=== PATIENT | female | born 1990 | race Caucasian/White ===

== ENCOUNTER 2017-02-03 12:41 | Inpatient (IN) ==
--- OUTSIDE RECORDS SUMMARY | 2017-02-03 10:29 | External Medical Summary | Summary of Care ---
:1990 Author Name Salima Haas M.D. Address Unavailable Unavailable , Care Team Providers Name Role Phone Waldo Roberson, Salima Unavailable Unavailable No Assigned PCP-Pt Confirmed Unavailable Unavailable Unavailable Unavailable Unavailable Functional Status Functional Status Health Issues Name Dates Details Functional status health issues are not documented Status: Cognitive Status Health Issues Name Dates Details Cognitive status health issues are not documented Status: Problems Name Dates Details Obesity affecting (649.10, O99.210) Status: Active Nausea and vomiting in prior to 22 weeks gestation (643.00, O21.9) Status: Active Encounter for care in first trimester of first (V22.0, Z34.01) Status: Active Bacterial vaginitis (616.10, N76.0) Status: Active Impaired glucose tolerance (790.22, R73.02) Status: Active Medications Name Dates Details TABS Refills: 0 Active Diclegis 10-10 MG Oral Tablet Delayed Release Take 2 tablets po q HS, if needed may take one tablet in the AM. Quantity: 12 Refills: 0 Salima Haas M.D. Start 01-Jul-2016 Active Ondansetron 4 MG Oral Tablet Dispersible TAKE 1 TABLET EVERY 4 HOURS NEEDED FOR NAUSEA AND VOMITING. Quantity: 20 Refills: 0 Salima Haas M.D. Start 09-Jul-2016 Active MetroNIDAZOLE 0.75 % Vaginal Gel INSERT 1 APPLICATORFUL INTRAVAGINALLY AT BEDTIME NIGHTLY. Quantity: 1 Refills: 0 Salima Haas M.D. Start 11-Jul-2016 Active 70 GM Tube Allergies and Adverse Reactions Name Dates Details No Known Drug Allergies (Allergy) Status: Active Procedures Procedure Dates Details OBSTETRIC PANEL 2129 Ordered: 01-Jul-2016 GLUCOSE TOLERANCE - 3 HRS 1720 Ordered: 11-Jul-2016 OB Dept- Ultrasound Quick Look/No Charge Ordered: 02-Jul-2016 Immunization Name Dates Details Immunizations not documented Social History Smoking Status Name Dates Details Unknown if ever smoked Vital Signs Date Test Result Details 09-Jul-2016 11:42 BP Systolic 118 mm[Hg] Status: Comments: Location: ; Position: BP Diastolic 70 mm[Hg] Status: Comments: Location: ; Position: Heart Rate 92 /min Status: Height 60 in Status: Weight 182 lb Status: Body Mass Index Calculated 35.54 kg/m2 Status: Body Surface Area Calculated 1.79 m2 Status: 01-Jul-2016 09:37 BP Systolic 122 mm[Hg] Status: Comments: Location: ; Position: BP Diastolic 68 mm[Hg] Status: Comments: Location: ; Position: Height 60 in Status: Weight 184 lb Status: Body Mass Index Calculated 35.94 kg/m2 Status: Body Surface Area Calculated 1.8 m2 Status: Results Date Description Value Details 19-Jun-2016 15:20 BETA HCG 3500 BETA HCG 12656 mIU/mL (Above high Range: 0-5 threshold) Comments: Gestational age: 0.02-1 Weeks=5-50 mIU/mL1-2 Weeks= 50-500 mIU/mL2-3 Jrscp=626-0581 mIU/mL3-4 Lolhf=713-99,000 mIU/mL4-5 Weeks=1,000 -50,000 mIU/mL5-6 Weeks=10,000-100,000 mIU/mL6-8 Weeks=15,000-200,000 mIU/mL2-3 months=10,000-100,000 mIU/mL----- 01-Jul-2016 11:12 CBC w/ Auto Diff 7150 WBC 8.2 K/uL Range: 4.5-11.0 RBC 4.56 mil/uL Range: 3.60-5.00 HGB 13.4 g/dL Range: 12.0-16.0 HCT 40.2 % Range: 36.0-48.0 MCV 88.1 fL Range: 80.0-99.0 MCH 29.3 pg Range: 27.3-32.5 MCHC 33.3 % Range: 32.0-36.0 RDW 13.9 % Range: 11.6-14.8 PLATELETS 239 K/uL Range: 150-400 MPV 8.0 fL Range: 6.0-11.0 %NEUTRO 76.1 % Range: 37.0-80.0 %LYMPHS 17.0 % Range: 13.0-50.0 %MONO 4.8 % Range: 0.0-12.0 %EOS 0.6 % Range: 0.0-7.0 %BASO 0.5 % Range: 0.0-2.5 %CHANTELLE 1.1 % Range: 0.0-5.0 NEUTRO 6.3 K/uL Range: 2.0-6.9 LYMPHS 1.4 K/uL Range: 0.6-3.4 MONOS 0.4 K/uL Range: 0.0-0.9 EOS 0.1 K/uL Range: 0.0-0.7 BASO 0.0 K/uL Range: 0.0-0.2 11:14 Urinalysis w/ Microscopic 8006 pH 6.5 Range: 5.0-7.5 SP GRAVITY 1.010 Range: 1.010-1.030 APPEARANCE CLEAR Range: Clear COLOR YELLOW Range: Straw-Yellow PROTEIN NEGATIVE mg/dL Range: Negative-Trace GLUCOSE NEGATIVE mg/dL Range: Negative KETONE NEGATIVE mg/dL Range: Negative BILIRUB NEGATIVE Range: Negative BLOOD NEGATIVE Range: Negative UROBIL 1.0 EU/dL Range: 0.2-1.0 NITRITE NEGATIVE Range: Negative LEUK NEGATIVE Range: Negative WBC 0-2 /HPF Range: 0-5 EPITH 6-10 /HPF Range: 0-10 12:07 RUBELLA ANTIBODIES 3504 RUBELLA ANTIBODIES Pos Range: >10 15:59 Blood Type 2126 (ABO and Rh) ABO A RH FACTOR Positive 16:00 Antibody Screen 2128 ATYPICAL ANTIBODY SCREEN Negative 02-Jul-2016 11:13 URINE CULTURE [id number] Comments: [facility] performed at: [facility], [place], [address], Top Edge Beveler: Bob Reynolds D.O., MPHQuest Collection Date/Time: [facility] Results Received Date/Time: [id number] Reported Date /Time: FASTING:NOQuest performed at : [facility] [address] [place], [address], [employer] Edge Beveler: Bob Reynolds D.O., MPHQuest Collection Date/Time: [id number] Results Received Date/Time: [id number] Reported Date/Time: FASTING:NO CULTURE, URINE, ROUTINE SEE NOTE Comments: CULTURE, URINE, ROUTINE MICRO NUMBER: [id number] TEST STATUS: FINAL SPECIMEN SOURCE: URINE , CLEAN CATCH SPECIMEN QUALITY: ADEQUATE RESULT: No Growth[[place]]---- - 14:43 RPR [id number] Comments: Testing performed at: [DA[facility] [address], [place], [address], , [employer] Edge Beveler: FRANCISCO Minor MD RPR Non Reactive Range: Non Reactive 14:43 Hep B Surface Ag [id number] Comments: Testing performed at: [DA] [facility] [address], [place], [address], , [employer] Edge Beveler: FRANCISCO Minor MD HBsAg Screen Negative Range: Negative 14:43 Drug Screen ( 7 Drug Bundle) [id number] Comments: Testing performed at: [HD ] [address], [address], Phone: , [employer] Edge Beveler: Heri Pack MD AMPHETAMINES, URINE Negative ng/mL Range: Mgthfa=7652 Comments: Amphetamine test includes Amphetamine and Methamphetamine.----- BARBITURATES Negative ng/mL Range: Xdvyvi=865 BENZODIAZEPINES Negative ng/mL Range: Qppzqb=780 CANNABINOID Negative ng/mL Range: Cutoff=50 COCAINE (METAB.) Negative ng/mL Range: Vlfkcr=257 OPIATES Negative ng/mL Range: Zbfefs=762 Comments: Opiate test includes Codeine and Morphine only.----- PHENCYCLIDINE Negative ng/mL Range: Cutoff=25 09-Jul-2016 12:52 Yasmany Glucose 1 HR 1102 GLUCOSE, BLOOD 163.0 mg/dl (Above high threshold) Range: 70.0-100.0 16:22 Vaginitis Panel ( Trichomonas, Gardnerella, Patt sp.) 5615 T. VAGINALIS PROBE Negative Range: Negative GARDNERELLA PROBE POSITIVE (Abnormal) Range: Negative PATT SP. PROBE Negative Range: Negative 10-Jul-2016 15:21 Chlamydia/GC TMA Assay [id number] Comments: [facility] performed at: [place], [facility], [address] [facility], [place], [address], [employer] Edge Beveler: Bob Reynolds D.O., MPHQuest Collection Date/Time: [id number] Results Received Date/Time: [id number] Reported Date /Time: FASTING:NO CHLAMYDIA TRACHOMATIS RNA, TMA NOT DETECTED Range: NOT DETECTED Comments: [[place]]----- NEISSERIA GONORRHOEAE RNA, TMA NOT DETECTED Range: NOT DETECTED Comments: [[place]]----- COMMENT SEE NOTE Comments: This test was performed using the APTIMA COMBO2 Assay([employer]The analytical performance characteristics of thisassay, when used to test SurePath specimens havebeen determined by [facility].[ [place]]----- 11-Jul-2016 14:48 OB- [place] Depression Scale ( EPDS) I have been able to laugh and see the funny (0) As much as I always could side of things I have looked forward with enjoyment to (0) As much as I ever did things I have blamed myself unnecessarily when (1) Not very often things went wrong I have been anxious or worried for no good (2) Yes, sometimes reason I have felt scared or panicky for no very (1) No, not much good reason Things have been getting on top of me (1) No, most of the time I have coped quite well I have been so unhappy that I have had (0) No, not at all difficulty sleeping I have felt sad or miserable (1) Not very often I have been so unhappy that I have been (0) No, never crying The thought of harming myself has occurred (0) Never to me Total Score 6 Plan of Care Name Dates Details Planned Observations Planned Goals not documented Planned Encounters Appointment; Provider: Salima Haas M.D. On 07-Aug-2016 09:00 Instructions Name Dates Details Instructions not documented Encounters Appointment; Salima Haas M.D. On 09-Jul-2016 Encounter Diagnosis: Problem not documented 11:15 Appointment; Salima Haas M.D. On 01-Jul-2016 Encounter Diagnosis: Problem not documented 09:00
--- OUTSIDE RECORDS SUMMARY | 2017-02-03 10:29 | External Medical Summary | Continuity of Care Document ---
:1990 Author Organization [facility] Address [address] [place], [place] [address] Phone Allergies, Adverse Reactions, Alerts Substance Reaction Severity Status No Known Drug Allergies Unknown Active Medications Medication Instructions Dosage Effective Dates Status Comments (start - stop) acyclovir 400 mg take 1 tablet PO TID - Active tablet until delivery 28 mg take 1 tablet by Not Available - Active iron-800 mcg oral route every tablet day Problems Condition Effective Dates (start - stop) Clinical Status Supervision of other high risk - pregnancies, third trimester 33 weeks gestation of - Supervision of other high risk - pregnancies, second trimester Gestational diabetes mellitus in - , diet controlled Other abnormal glucose - 21 weeks gestation of - Herpesviral infection, unspecified - Supervision of other high risk - pregnancies, second trimester Abnormal glucose complicating - Other abnormal glucose - Acute pharyngitis, unspecified - Other pruritus - Supervision of other high risk - pregnancies, second trimester 25 weeks gestation of - Supervision of other high risk - pregnancies, third trimester 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, third tri 32 weeks gestation of - Supervision of other high risk - pregnancies, third trimester 34 weeks gestation of - Supervision of other high risk - pregnancies, third trimester 35 weeks gestation of - Supervision of other high risk - pregnancies, third trimester 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, third tri 30 weeks gestation of - Supervision of other high risk - pregnancies, third trimester Encounter for screening of - mother 36 weeks gestation of - Gestational diabetes mellitus in - , diet controlled 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 Provider: Health KADE, pregnancies, [address] [place], 1522, trimesterEncounte Center [address] [place] [address], for Merrick Roberto, screening of 120, [place] [id number], weeks [facility] 120, [place] gestation of Erick NOONAN, tel:+ [phone] [place], , [place]. [id number]. tel: tel:[phone] John Suarez Supervision of Dec- Gross Referring In Womens other high risk 4-201 Maryann. Provider: Health KADE, pregnancies, [address] third [place], 1522, weeks gestation Center [facility], of Merrick Roberto, 120, [place] [id number], [facility], [place] Erick NOONAN, tel: [phone] [place], [id number] , [place]. [id number]. tel: tel:[phone] John Suarez Supervision of Dec-0 Gross Referring In Womens other high risk 8-201 Maryann. Provider: Health KADE, pregnancies, [address] third [id number] [place], 1522, weeks gestation Center [address], of Merrick Roberto, 120, Center [id number], [place] 120, [place] Erick NOONAN, tel:+ [phone] [place], , [place]. [id number]. tel: tel:[phone] John Suarez Supervision of Dec-0 Gross Referring In Womens other high risk 2-201 Maryann. Provider: Health PA, pregnancies, [address] third [id number] [place], 1522, weeks gestation Center [address] [place] [address], of Merrick Roberto, 120, Center [id number], Suarez, [facility] 120, [place] SHAISTA Erick, tel:+ [phone] [place], , [place]. [id number]. tel: tel:[phone] John Suarez Supervision of Nov-2 Gross Referring In Womens other high risk 0-201 Maryann. Provider: Health KADE, pregnancies, [address] third Medical Fran [place], 1522, trimesterMaternal Center [address] [place] [address], care for benign Merrick Roberto, tumor of corpus 120, Center [id number], uteri, third [facility] 120, [place] tri32 weeks Erick NOONAN, tel:+ gestation of [phone] [place], , [place]. [id number]. tel: tel:[phone] John Suarez Gestational Nov-2 Gross Referring In Womens Ultrasound diabetes mellitus 0-201 Maryann. Provider: Elisabeth BRAUN, in , [address] [facility] Herman [place], 1522, controlledMaterna Center [address] [place] [address], l care for benign Merrick Roberto, tumor of corpus 120, Center [id number], uteri, third Erick, [facility] 120, [place] tri32 weeks Erick NOONAN, tel:+ gestation of [phone] [place], , [place]. [id number]. tel: tel:[phone] John Suarez Supervision of Nov-0 Gross Referring In Womens other high risk 6-201 Maryann. Provider: Health KADE, pregnancies, [address] third Medical Fran [place], 1522, trimesterMaternal Center [address] [place] [address], care for benign Dr, [facility], tumor of corpus 120, Center [id number], uteri, third Suarez, [facility] 120, [place] tri30 weeks Erick NOONAN, tel:+[phone] gestation of [phone] [place], , [place]. [id number]. tel: tel:[phone] John Suarez Herpesviral Kadeem-1 Sobbing Referring In Womens infection, [place]. Provider: Health PA, unspecifiedSuperv [address] ision of other [facility], 1522, high risk Center [address], pregnancies, Drive, [facility], second Suite Center [id number], trimesterAbnormal 120, Merrick 120, [place] glucose Erick Erick, tel:[phone] complicating [place], [place], pregnancyOther [address], [id number]. abnormal glucose [place]. tel: tel: [phone] John Suarez Acute Kadeem-0 Gross Referring In Womens pharyngitis, [place]. Provider: Health PA, unspecifiedOther [address] pruritusSupervisi [facility], 1522, on of other high Center [address], risk pregnancies, Dr [facility], second 120, Center [id number], [id number] weeks [facility] 120, [place] gestation of Erick NOONAN, tel:[phone] [place], , [place]. [id number]. tel: tel:[phone] John Suarez Supervision of Gross Referring In Womens other high risk 0-201 Maryann. Provider: Health PA, pregnancies, [address] [facility], 1522, trimesterGestatio Center [address], nal diabetes , [facility] SHAISTA, mellitus in 120, Center [id number], , diet Suarez, [place] 120, [place] controlledOther Erick NOONAN, tel:[phone] [place], [id number] weeks , [place]. [id number]. gestation of tel: tel:[phone] Family History Family Member Diagnosis Age At Onset No family history of Lung Disease No family history of Ovarian Cancer No family history of Kidney Disease No family history of Colon Cancer No family history of Breast Cancer No family history of Cardiovascular Disease No family history of Osteoporosis No family history of Diabetes No family history of Hypertension No family history of Stroke No family history of Thyroid Disorder No family history of Epilepsy Immunizations Vaccine Date Status Comments Tdap completed Source: New Immunization Record Payers Payer name Insurance type Covered alliance party ID Authorization(s) [employer] [place] [id number] [employer] [place] [id number] Social History Type Description Quantity Date Captured Alcohol Use Details No Caffeine Use Details Unknown Tobacco Use Status Unknown Smoking Status Never smoker Vital Signs Date / Height Weight BMI Pulse Blood Temperature Respiratory Body Head BMI Time: Rate Pressure Rate Surface Circumference percentile Area 192.20 37.5 133/90 lbs 3 mm[Hg] 1:35 kg/m PM eter (2) Chief Complaint And Reason For Visit Unknown Chief Complaint And Reason For Visit Reason For Referral Reason For Referral Unknown Plan Of Care Date Type Action Status Future Order: Radiology Order Ultrasound OB Follow-up ([id number]) Ordered Date Type Problem Goal Intervention Status Start Date Unknown. History Of Present Illness Encounter Date Complaint History Of Present Illness This patient has no known history of present illness Functional Status Encounter Date Functional Assessment Cognitive Assessment Unknown Medications Administered Medication Instructions Dosage Effective Dates (start - stop) Status Comments Drug Treatment Unknown Instructions Date Instruction Additional Information labor signs group B strep screening
--- OUTSIDE RECORDS SUMMARY | 2017-02-03 10:29 | External Medical Summary | Summary of Care ---
:1990 Author Name Salima Haas M.D. Address Unavailable Unavailable , Care Team Providers Name Role Phone Waldo Roberson Salima Unavailable Unavailable No Assigned PCP-Pt Confirmed [...] trimester of first (V22.0, Z34.01) Status: Active Medications Name Dates Details TABS Refills: 0 Active Diclegis 10-10 MG Oral Tablet Delayed Release Take 2 tablets po q HS, if needed may take one tablet in the AM. Quantity: 12 Refills: 0 Lluvia Haas M.D.say Start 01-Jul-2016 Active Ondansetron 4 MG Oral Tablet Dispersible TAKE 1 TABLET EVERY 4 HOURS NEEDED FOR NAUSEA AND VOMITING. Quantity: 20 Refills: 0 Waldo Ceja., Salima Start 09-Jul-2016 Active Allergies and Adverse Reactions Name Dates Details No Known Drug Allergies (Allergy) Status: Active Procedures Procedure Dates Details OBSTETRIC PANEL 2129 Ordered: 01-Jul-2016 OB Dept- Ultrasound Quick Look/No Charge Ordered: [...] 19-Jun-2016 15:20 BETA HCG 3500 BETA HCG 61663 mIU/mL (Above high Range: 0-5 threshold) Comments: Gestational age: 0.02-1 Weeks=5-50 mIU/mL1-2 Weeks= 50-500 mIU/mL2-3 Khrev=591-1927 mIU/mL3-4 Djggv=652-24,000 mIU/mL4-5 Weeks=1,000 -50,000 mIU/mL5-6 Weeks=10,000-100,000 mIU/mL6-8 Weeks=15,000-200,000 [...] A RH FACTOR Positive 16:00 Antibody Screen 8 ATYPICAL ANTIBODY SCREEN Negative 02-Jul-2016 11:13 URINE CULTURE [id number] Comments: [facility] performed at: [facility], [address] [place], [address], Public Transit Trolley Driver: Bob Reynolds D.O., MPHQuest Collection Date/Time: [facility] Results Received Date/Time: Reported Date /Time: FASTING:NOQuest performed at : [facility], [address] [place], [address], Public Transit Trolley Driver: Bob Reynolds D.O., MPHQuest Collection Date/Time: [id number] Results Received Date/Time: [id number] Reported Date/Time: FASTING:NO CULTURE, URINE, ROUTINE SEE NOTE Comments: CULTURE, URINE, ROUTINE MICRO NUMBER: [id number] TEST STATUS: FINAL SPECIMEN SOURCE: URINE , CLEAN CATCH SPECIMEN QUALITY: ADEQUATE RESULT: No Growth[[place]]---- - 14:43 RPR [id number] Comments: [facility] performed at: [facility], [address] [place] [address] [address], [place], [address], , Public Transit Trolley Driver: FRANCISCO Minor MD RPR Non Reactive Range: Non Reactive 14:43 Hep B Surface Ag [id number] Comments: Testing performed at: [facility]DA[facility], [address] [facility] [address], [place], [address], , Public Transit Trolley Driver: FRANCISCO Minor MD HBsAg Screen Negative Range: Negative 14:43 Drug Screen ( 7 Drug Bundle) [id number] Comments: Testing performed at: [HD ] [facility], [address], Phone: , Public Transit Trolley Driver: Heri Pack MD AMPHETAMINES, URINE Negative ng/mL Range: Dqzcop=1828 Comments: Amphetamine test includes Amphetamine and Methamphetamine.----- BARBITURATES Negative ng/mL Range: Mwktyw=515 BENZODIAZEPINES Negative ng/mL Range: Hpqkuv=817 CANNABINOID Negative ng/mL Range: Cutoff=50 COCAINE (METAB.) Negative ng/mL Range: Ulzbil=605 OPIATES Negative ng/mL Range: Ljdjik=142 Comments: Opiate test includes Codeine and Morphine only.----- PHENCYCLIDINE Negative ng/mL Range: Cutoff=25 09-Jul-2016 16:22 Vaginitis Panel ( Trichomonas, Gardnerella, Patt sp.) 5615 T. VAGINALIS PROBE Negative Range: Negative GARDNERELLA PROBE POSITIVE (Abnormal) Range: Negative PATT SP. PROBE Negative Range: Negative 10-Jul-2016 15:21 Chlamydia/GC TMA Assay [id number] Comments: [facility] performed at: [facility] [address] [place], [address], Public Transit Trolley Driver: Bob Reynolds D.O., MPHQuest Collection Date/Time: [id number] Results Received Date/Time: [id number] Reported Date /Time: FASTING:NO CHLAMYDIA TRACHOMATIS RNA, TMA NOT DETECTED Range: NOT DETECTED Comments: [[place]]----- NEISSERIA GONORRHOEAE RNA, TMA NOT DETECTED Range: NOT DETECTED Comments: [[place]]----- COMMENT SEE NOTE Comments: This test was performed using the APTIMA COMBO2 Assay([employer]The analytical performance characteristics of thisassay, when used to test SurePath specimens havebeen determined by [employer].[ [place]]----- Plan of Care Name Dates Details Planned Observations Planned Goals not documented Planned Encounters Appointment; Provider: Salima Haas M.D. On 07-Aug-2016 09:00 Instructions Name Dates Details Instructions not documented Encounters Appointment; Salima Haas M.D. On 09-Jul-2016 Encounter Diagnosis: Problem not documented 11:15 Appointment; Salima Haas M.D. On 01-Jul-2016 Encounter Diagnosis: Problem not documented 09:00
--- OUTSIDE RECORDS SUMMARY | 2017-02-03 10:29 | External Medical Summary | Summary of Care ---
:1990 Author Name Salima Haas M.D. Address Unavailable Unavailable , Care Team Providers Name Role Phone Waldo Roberson, Salima Unavailable Unavailable No Assigned PCP-Pt Confirmed Unavailable Unavailable Functional Status Functional Status Health Issues Name Dates Details Functional status health issues are not documented Status: Cognitive Status Health Issues Name Dates Details Cognitive status health issues are not documented Status: Problems Name Dates Details Encounter for care in first trimester of first (V22.0, Z34.01) Status: Active Obesity affecting (649.10, O99.210) Status: Active Medications Name Dates Details TABS Refills: 0 Active Diclegis 10-10 MG Oral Tablet Delayed Release Take 2 tablets po q HS, if needed may take one tablet in the AM. Quantity: 12 Refills: 0 Waldo Roberson, Salima Start 01-Jul-2016 Active Allergies and Adverse Reactions Name Dates Details No Known Drug Allergies (Allergy) Status: Active Procedures Procedure Dates Details OBSTETRIC PANEL 2130 Ordered: 01-Jul-2016 Chlamydia/GC TMA Assay [id number] Ordered: 09-Jul-2016 Vaginitis Panel ( Trichomonas, Gardnerella, Patt Ordered: 09-Jul-2016 sp.) 5615 OB Dept- Ultrasound Quick Look/No Charge Ordered: [...] 19-Jun-2016 15:20 BETA HCG 3500 BETA HCG 76731 mIU/mL (Above high Range: 0-5 threshold) Comments: Gestational age: 0.02-1 Weeks=5-50 mIU/mL1-2 Weeks= 50-500 mIU/mL2-3 Iqixj=324-7771 mIU/mL3-4 Hldey=263-88,000 mIU/mL4-5 Weeks=1,000 -50,000 mIU/mL5-6 Weeks=10,000-100,000 mIU/mL6-8 Weeks=15,000-200,000 [...] ANTIBODIES Pos Range: >10 15:59 Blood Type 2125 (ABO and Rh) ABO A RH FACTOR Positive 16:00 Antibody Screen 2127 ATYPICAL ANTIBODY SCREEN Negative 02-Jul-2016 11:13 URINE CULTURE [id number] Comments: TMAT [facility] at: [facility], [address] [place] [address], [address], Supervisor Stave Cutting: Bob Reynolds D.O., MPHQuest Collection Date/Time: [facility] Results Received Date/Time: [id number] Reported Date /Time: FASTING:NOQuest performed at : [facility], [address] [place], [address], Supervisor Stave Cutting: Bob Reynolds D.O., MPHQuest Collection Date/Time: [id number] Results Received Date/Time: [id number] Reported Date/Time: FASTING:NO CULTURE, URINE, ROUTINE SEE NOTE Comments: CULTURE, URINE, ROUTINE MICRO NUMBER: [id number] TEST STATUS: FINAL SPECIMEN SOURCE: URINE , CLEAN CATCH SPECIMEN QUALITY: ADEQUATE RESULT: No Growth[KS]---- - 14:43 RPR [id number] Comments: Testing performed at: [DA] [facility] [address], [place], [address], , Supervisor Stave Cutting: FRANCISCO Minor MD RPR Non Reactive Range: Non Reactive 14:43 Hep B Surface Ag [id number] Comments: Testing performed at: [DA] [facility] [place] [facility], [address] [address], [place], [address], , Supervisor Stave Cutting: FRANCISCO Minor MD HBsAg Screen Negative Range: Negative 14:43 Drug Screen ( 7 Drug Bundle) [id number] Comments: Testing performed at: [HD ] [facility] [address], [address], Phone: , Supervisor Stave Cutting: Heri Pack MD AMPHETAMINES, URINE Negative ng/mL Range: Rvpauz=8701 Comments: Amphetamine test includes Amphetamine and Methamphetamine.----- BARBITURATES Negative ng/mL Range: Strygu=313 BENZODIAZEPINES Negative ng/mL Range: Zlmadx=585 CANNABINOID Negative ng/mL Range: Cutoff=50 COCAINE (METAB.) Negative ng/mL Range: Vsukep=143 OPIATES Negative ng/mL Range: Cvhtig=844 Comments: Opiate test includes Codeine and Morphine only.----- PHENCYCLIDINE Negative ng/mL Range: Cutoff=25 Plan of Care Name Dates Details Planned Observations Planned Goals not documented Planned Encounters Appointment; Provider: Salima Haas M.D. On 07-Aug-2016 09:00 Interventions Provided Labs/Procedures/ImagingChlamydia/GC TMA Assay [id number]; To be Done: 09 Jul 2016Vaginitis Panel ( Trichomonas, Gardnerella, Patt sp.) 5615; To be Done: 09 Jul 2016 Instructions Name Dates Details Instructions not documented Encounters Appointment; Salima Haas M.D. On 01-Jul-2016 Encounter Diagnosis: Problem not documented 09:00
--- OUTSIDE RECORDS SUMMARY | 2017-02-03 10:29 | External Medical Summary | Summary of Care ---
[...] not documented Status: Problems Name Dates Details Impaired glucose tolerance (790.22, R73.02) Status: Active Bacterial vaginitis (616.10, N76.0) Status: Active Nausea and vomiting in prior [...] 0 Salima Haas M.D. Start 09-Jul-2016 Active Allergies and Adverse Reactions Name Dates Details No Known Drug Allergies (Allergy) Status: Active Procedures Procedure Dates Details OBSTETRIC PANEL 0 Ordered: 01-Jul-2016 GLUCOSE TOLERANCE - 3 HRS 1720 Ordered: 11-Jul-2016 Immunization Name Dates Details Immunizations not documented Social History Smoking Status Name Dates Details Unknown if ever smoked Vital Signs Date Test Result Details 07-Aug-2016 10:18 BP Systolic 128 mm[Hg] Status: Comments: Location: ; Position: BP Diastolic 78 mm[Hg] Status: Comments: Location: ; Position: Heart Rate 106 /min Status: Comments: Location: ; Weight 180 lb Status: Body Mass Index Calculated 35.15 kg/m2 Status: Body Surface Area Calculated 1.78 m2 Status: Results Date Description Value Details 09-Jul-2016 16:18 OB Dept- Ultrasound Quick Comments: Exam Date: 07/09/2016 10 :41Dictation Date: 07/09/2016 16:18 Look/No Charge XOB LIMITED NO CHARGE 07-Aug-2016 10:30 Urinalysis, reflex to Micro and Comments: Testing performed by [facility], [address] [place], [place] [address] [address] [facility] 8628 pH 7.0 Range: 5.0-7.5 SP GRAVITY 1.015 Range: 1.010-1.030 APPEARANCE Clear Range: Clear COLOR Yellow Range: Straw-Yellow PROTEIN Negative mg/dL Range: Negative-Trace GLUCOSE Negative mg/dL Range: Negative KETONES Negative mg/dL Range: Negative BILIRUBIN Negative Range: Negative BLOOD Negative Range: Negative UROBIL 0.2 EU/dL Range: 0.2-1.0 NITRITE Negative Range: Negative LEUKOCYTES Negative Range: Negative 11-Aug-2016 09:10 URINE CULTURE [id number] Comments: [employer] performed at: [facility], [address] [place], [address], Retail Leader: Bob Reynolds D.O., MPHQuest Collection Date/Time: [facility] Results Received Date/Time: [id number] Reported Date /Time: [id number] FASTING:NO CULTURE, URINE, ROUTINE SEE NOTE (Abnormal) Comments: CULTURE, URINE, ROUTINE MICRO NUMBER: [id number] TEST STATUS: FINAL SPECIMEN SOURCE : URINE, CLEAN CATCH SPECIMEN QUALITY: ADEQUATE RESULT: 50,000- 100,000 CFU/mL of Lactoba cillus species May represent colonizers from external and internal genitalia. No further testing ( including susceptibility) will be performed. COMMENT: Additional organism(s) less than 10,000 CFU/mL isolated. These organisms, commonly found on external and internal genitalia, are considered colonizers. No further testing performed.[IA]----- Plan of Care Name Dates Details Planned Observations Planned Goals not documented Planned Encounters Appointment; Provider: Salima Haas M.D. On 11-Sep-2016 09:15 Instructions Name Dates Details Instructions not documented Encounters Appointment; Salima Haas M.D. On 07-Aug-2016 Encounter Diagnosis: Problem not documented 10:00 Appointment; Salima Haas M.D. On 09-Jul-2016 Encounter Diagnosis: Problem not documented 11:15 Appointment; Salima Haas M.D. On 01-Jul-2016 Encounter Diagnosis: Problem not documented 09:00
--- OUTSIDE RECORDS SUMMARY | 2017-02-03 10:29 | External Medical Summary | Summary of Care ---
[...] 22 weeks gestation (643.00, O21.9) Status: Active Bacterial vaginitis (616.10, N76.0) Status: Active Impaired glucose tolerance (790.22, R73.02) Status: Active Encounter for care in first trimester of first (V22.0, Z34.01) Status: Active care, first , second trimester (V22.0, Z34.02) Status: Active Diabetes, gestational (648.80, O24.419) Status: Active Medications Name Dates Details TABS [...] 0 Salima Haas M.D. Start 09-Jul-2016 Active Metoclopramide HCl - 10 MG Oral Tablet TAKE 1 TABLET EVERY 6 HOURS NEEDED. Quantity: 30 Refills: 0 Salima Haas M.D. Start 11-Sep-2016 Active Test Strips Check blood sugar 4-6x daily and PRN Quantity: 100 Refills: 6 Salima Haas M.D. Start 24-Sep-2016 Active Lancets Test blood sugars 4-6 times a day and PRN. Quantity: 100 Refills: 6 Salima Haas M.D. 24-Sep-2016 Active Allergies and Adverse Reactions Name Dates Details No Known Drug Allergies (Allergy) Status: Active Procedures Procedure Dates Details Procedures not documented Immunization Name Dates Details Immunizations not documented Social History Smoking Status Name Dates Details Unknown if ever smoked Vital Signs Date Test Result Details 24-Sep-2016 13:42 BP Systolic 130 mm[Hg] Status: Comments: Location: ; Position: BP Diastolic 74 mm[Hg] Status: Comments: Location: ; Position: Heart Rate 86 /min Status: Comments: Location: ; Weight 184 lb Status: Body Mass Index Calculated 35.94 kg/m2 Status: Body Surface Area Calculated 1.8 m2 Status: 11-Sep-2016 09:24 BP Systolic 124 mm[Hg] Status: Comments: Location: ; Position: BP Diastolic 82 mm[Hg] Status: Comments: Location: ; Position: Heart Rate 98 /min Status: Comments: Location: ; Weight 183 lb Status: Body Mass Index Calculated 35.74 kg/m2 Status: Body Surface Area Calculated 1.8 m2 Status: Results Date Description Value Details 11-Sep-2016 10:03 Urinalysis, reflex to Micro and Comments: Testing performed by [facility], [facility] [address] [address] Culture ([facility]) 8201 pH 7.0 Range: 5.0-7.5 SP GRAVITY 1.020 Range: 1.010-1.030 APPEARANCE Cloudy (Abnormal) Range: Clear COLOR Yellow Range: Straw-Yellow PROTEIN Negative mg/dL Range: Negative-Trace GLUCOSE Negative mg/dL Range: Negative KETONES Negative mg/dL Range: Negative BILIRUBIN Negative Range: Negative BLOOD Negative Range: Negative UROBIL 0.2 EU/dL Range: 0.2-1.0 NITRITE Negative Range: Negative LEUKOCYTES Negative Range: Negative 24-Sep-2016 16:38 OB Dept- Ultrasound Screening Comments: Exam Date: 2016 12:29Dictation Date: 09/24/2016 16:38 XOB SINGLE OB Plan of Care Name Dates Details Planned Observations Planned Goals not documented Instructions Name Dates Details Instructions not documented Encounters Appointment; Sonya A[address] RD|MAURICIO|[place]rant On 24-Sep-2016 Encounter Diagnosis: Problem not documented 14:00 Appointment; Salima Haas M.D. On 24-Sep-2016 Encounter Diagnosis: Problem not documented 13:00 Appointment; Salima Haas M.D. On 11-Sep-2016 Encounter Diagnosis: Problem not documented 09:15 Appointment; Salima Haas M.D. On 07-Aug-2016 Encounter Diagnosis: Problem not documented 10:00 Appointment; Salima Haas M.D. On 09-Jul-2016 Encounter Diagnosis: Problem not documented 11:15 Appointment; Salima Haas M.D. On 01-Jul-2016 Encounter Diagnosis: Problem not documented 09:00"
--- OUTSIDE RECORDS SUMMARY | 2017-02-03 10:29 | External Medical Summary | Continuity of Care Document ---
:1990 Author Organization [facility] Address [address] [place], [place] [id number] Phone Allergies, Adverse Reactions, Alerts Substance Reaction [...] glucose - 21 weeks gestation of - Supervision of other high risk - pregnancies, third trimester 33 weeks gestation of - Herpesviral infection, unspecified - Supervision of other high risk - pregnancies, second trimester Abnormal glucose complicating - Other abnormal glucose - Acute pharyngitis, unspecified - Other pruritus - Supervision of other high risk - pregnancies, second trimester 25 weeks gestation of - Supervision of other high risk - pregnancies, third trimester 30 weeks gestation of - 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 [id number]. tel: tel:[phone] John Suarez Supervision of Dec- Gross Referring In Womens other high risk 4-201 Maryann. Provider: Health KADE, pregnancies, [address] [id number] [address], 1522, weeks gestation [address] [address] [place], of Merrick Roberto, 120, [place] [id number] 120, [place] Erick NOONAN, tel:[phone] [place], [id number] , [place]. [id number]. tel: tel:[phone] John Suarez Supervision of Dec-0 Gross Referring In Womens other high risk 8-201 Maryann. Provider: Health KADE, pregnancies, [address] [id number] [address], 1522, weeks gestation Center [address] [place] [address], of Merrick Roberto, 120, [place] [id number], Suarez, [address] 120, [place] Erick NOONAN, tel:+ [phone] [place], , [place]. [id number]. tel: tel:[phone] John Suarez Supervision of Dec-0 Gross Referring In Womens other high risk 2-201 Maryann. Provider: Health PA, pregnancies, [address] [id number] [address], 1522, weeks gestation Center [address] [place] [address], of Merrick Roberto, 120, Center [id number], Suarez, [facility] 120, [place] SHAISTA Erick, tel:+ [phone] [place], , [place]. [id number]. tel: tel:[phone] John Suarez Supervision of Nov-2 Gross Referring In Womens other high risk 0-201 Maryann. Provider: Health KADE, pregnancies, [address] third [address] [place], 1522, trimesterMaternal Center [address] [place] [address], care for benign Merrick Roberto, tumor of corpus 120, Center [id number], uteri, third [facility] 120, [place] tri32 weeks Erick NOONAN, tel:+ gestation of [phone] [place], , [place]. [id number]. tel: tel:[phone] John Suarez Gestational Nov-2 Gross Referring In Womens Ultrasound diabetes mellitus 0-201 Maryann. Provider: Elisabeth BRAUN, in , [address] RONALDO [address] diet [address] [place], 1522, controlledMaterna Center [address] [place] [address], l care for benign Merrick Roberto, tumor of corpus 120, Center [id number], uteri, third Suarez, [facility] 120, [place] tri32 weeks Erick NOONAN, tel:+ gestation of [phone] [place], , [place]. [id number]. tel: tel:[phone] John Suarez Supervision of Nov-0 Gross Referring In Womens other high risk 6-201 Maryann. Provider: Elisabeth BRAUN, pregnancies, [address]ON[address] third [id number] [address], 1522, weeks gestation Center [address] [place] [address], of Merrick Roberto, pregnancyMaternal 120, Center [id number], care for benign Suarez, [address] 120, [place] tumor of corpus Erick NOONAN, tel:[phone] uteri, third tri [phone] [place], , [place]. [id number]. tel: tel:[phone] John Suarez Herpesviral Kadeem-1 Sobbing Referring In Womens infection, Saxe. Provider: Health PA, unspecifiedSuperv [address] ision of other [facility], 1522, high risk Center [address], pregnancies, [address], Medical [place], second Suite Center [id number], trimesterAbnormal 120, [place] 120, [place] glucose Erick Suarez, tel:[phone] complicating [place], [place], pregnancyOther [address], [id number]. abnormal glucose [place]. tel: tel: [phone] John Suarez Acute Kadeem-0 Gross Referring In Womens pharyngitis, Kiron. Provider: Health PA, unspecifiedOther [address] pruritusSupervisi [facility], 1522, on of other high Center [address], risk pregnancies, Dr [facility], second 120, Center [id number], [id number] weeks [facility] 120, [place] gestation of Erick NOONAN, tel:[phone] [place], , [place]. [id number]. tel: tel:[phone] John Suarez Supervision of Gross Referring In Womens other high risk 0-201 Maryann. Provider: Health PA, pregnancies, [address] [facility], 1522, trimesterGestatio Center [address] [place] [address], nal diabetes Dr [facility] SHAISTA, mellitus in 120, Center [id number], , diet Suarez, Mer[place] 120, US controlledOther Erick NOONAN, tel:[phone] abnormal [phone] [place], [id number] weeks , [place]. [id number]. gestation of tel: tel:[phone] Family History Family Member Diagnosis Age At [...] Record Payers Payer name Insurance type Covered constitution party ID Authorization(s) [employer] Out Of State [id number] [employer] Out [employer] [place] [id number] Social History Type Description Quantity Date Captured Alcohol Use Details No Caffeine Use Details Unknown Tobacco Use Status Unknown Smoking Status Never smoker Vital Signs Date / Height Weight BMI Pulse Blood Temperature Respiratory Body Head BMI Time: Rate Pressure Rate Surface Circumference percentile Area 196.70 38.4 137/88 2017 lbs 1 mm[Hg] 2:59 kg/m PM eter (2) Chief Complaint And Reason For Visit Unknown Chief Complaint And Reason For Visit Reason For Referral Reason For Referral Unknown Plan Of Care Date Type Action Status Appointment Keiko Simpson BOOKED Future Order: Radiology Order Ultrasound OB Follow-up ([id number]) Ordered Date Type Problem Goal Intervention Status [...]
--- OUTSIDE RECORDS SUMMARY | 2017-02-03 10:29 | External Medical Summary | Summary of Care ---
[...] 0 Salima Haas M.D. Start 11-Sep-2016 Active Allergies and Adverse Reactions Name Dates Details No Known Drug Allergies (Allergy) Status: Active Procedures Procedure Dates Details Procedures not documented Immunization Name Dates Details Immunizations not documented Social History Smoking Status Name Dates Details Unknown if ever smoked Vital Signs Date Test Result Details 11-Sep-2016 09:24 BP Systolic 124 mm[Hg] Status: Comments: Location: ; Position: BP Diastolic 82 mm[Hg] Status: Comments: Location: ; Position: Heart Rate 98 /min Status: Comments: Location: ; Weight 183 lb Status: Body Mass Index Calculated 35.74 kg/m2 Status: Body Surface Area Calculated 1.8 m2 Status: Results Date Description Value Details 11-Sep-2016 10:03 Urinalysis, reflex to Micro and Comments: Testing performed by [facility], [address] [place] [address] Culture ([facility]) 8016 pH 7.0 Range: 5.0-7.5 SP GRAVITY 1.020 Range: 1.010-1.030 APPEARANCE Cloudy (Abnormal) Range: Clear COLOR Yellow Range: Straw-Yellow PROTEIN Negative mg/dL Range: Negative-Trace GLUCOSE Negative mg/dL Range: Negative KETONES Negative mg/dL Range: Negative BILIRUBIN Negative Range: Negative BLOOD Negative Range: Negative UROBIL 0.2 EU/dL Range: 0.2-1.0 NITRITE Negative Range: Negative LEUKOCYTES Negative Range: Negative Plan of Care Name Dates Details Planned Observations Planned Goals not documented Interventions Provided Labs/Procedures/ImagingUrinalysis, reflex to Micro and Culture ([facility]) 8016; Done: 11Sep2016 09:15AM Instructions Name Dates Details Instructions not documented Encounters Appointment; Salima Haas M.D. On 11-Sep-2016 Encounter Diagnosis: Problem not documented 09:15 Appointment; Salima Haas M.D. On 07-Aug-2016 Encounter Diagnosis: Problem not documented 10:00 Appointment; Salima Haas M.D. On 09-Jul-2016 Encounter Diagnosis: Problem not documented 11:15 Appointment; Salima Haas M.D. On 01-Jul-2016 Encounter Diagnosis: Problem not documented 09:00
--- OUTSIDE RECORDS SUMMARY | 2017-02-03 10:29 | External Medical Summary | Summary of Care ---
[...] Dates Details OBSTETRIC PANEL 2130 Ordered: 01-Jul-2016 Yasmany Glucose 1 HR 1102 Ordered: 01-Jul-2016 OB Dept- Ultrasound Quick Look/No Charge Ordered: 02-Jul-2016 Immunization Name Dates Details Immunizations not documented Social History Smoking Status Name Dates Details Unknown if ever smoked Vital Signs Date Test Result Details 01-Jul-2016 09:37 BP Systolic 122 mm[Hg] Status: Comments: Location: ; Position: BP Diastolic 68 mm[Hg] Status: Comments: Location: ; Position: Height 60 in Status: Weight 184 lb Status: Body Mass Index Calculated 35.94 kg/m2 Status: Body Surface Area Calculated 1.8 m2 Status: Results Date Description Value Details 19-Jun-2016 15:20 BETA HCG 3500 BETA HCG 29765 mIU/mL (Above high Range: 0-5 threshold) Comments: Gestational age: 0.02-1 Weeks=5-50 mIU/mL1-2 Weeks= 50-500 mIU/mL2-3 Fvpqs=931-6157 mIU/mL3-4 Pdjtq=571-74,000 mIU/mL4-5 Weeks=1,000 -50,000 mIU/mL5-6 Weeks=10,000-100,000 mIU/mL6-8 Weeks=15,000-200,000 [...] ANTIBODIES Pos Range: >10 15:59 Blood Type 6 (ABO and Rh) ABO A RH FACTOR Positive 16:00 Antibody Screen 2127 ATYPICAL ANTIBODY SCREEN Negative -Jul-2016 11:13 URINE CULTURE [id number] Comments: [facility] performed at: [facility], [address] [place], [address], Oyster Preparer: Bob Reynolds D.O., MPHQuest Collection Date/Time: [id number] Results Received Date/Time: [id number] Reported Date /Time: [id number] FASTING:NOQuest performed at : [facility], [address] [place], [address], Oyster Preparer: Bob Reynolds D.O., MPHQuest Collection Date/Time: [id number] Results Received Date/Time: [id number] Reported Date/Time: FASTING:NO CULTURE, URINE, ROUTINE SEE NOTE Comments: CULTURE, URINE, ROUTINE MICRO NUMBER: [id number] TEST STATUS: FINAL SPECIMEN SOURCE: URINE , CLEAN CATCH SPECIMEN QUALITY: ADEQUATE RESULT: No Growth[KS]---- - 14:43 RPR [id number] Comments: Testing performed at: [DA] [address] [address], [place], [address], , Oyster Preparer: FRANCISCO Minor MD RPR Non Reactive Range: Non Reactive 14:43 Hep B Surface Ag [id number] Comments: Testing performed at: [DA] [address] [address], [place], [address], , Oyster Preparer: FRANCISCO Minor MD HBsAg Screen Negative Range: Negative 14:43 Drug Screen ( 7 Drug Bundle) [id number] Comments: Testing performed at: [HD ] [facility] [facility], [place], [address], Phone: , Oyster Preparer: Heri Pack MD AMPHETAMINES, URINE Negative ng/mL Range: Ouxkde=4126 Comments: Amphetamine test includes Amphetamine and Methamphetamine.----- BARBITURATES Negative ng/mL Range: Iqrlmj=867 BENZODIAZEPINES Negative ng/mL Range: Zbrpdg=470 CANNABINOID Negative ng/mL Range: Cutoff=50 COCAINE (METAB.) Negative ng/mL Range: Ryamuu=582 OPIATES Negative ng/mL Range: Bvgoex=783 Comments: Opiate test includes Codeine and Morphine only.----- PHENCYCLIDINE Negative ng/mL Range: Cutoff=25 Plan of Care Name Dates Details Planned Observations Planned Goals not documented Planned Encounters Appointment; Provider: Salima Haas M.D. On 09-Jul-2016 11:00 Instructions Name Dates Details Instructions not documented Encounters Appointment; Salima Haas M.D. On 01-Jul-2016 Encounter Diagnosis: Problem not documented 09:00
--- OUTSIDE RECORDS SUMMARY | 2017-02-03 10:29 | External Medical Summary | Summary of Care ---
[...] TOLERANCE - 3 HRS 1720 Ordered: 11-Jul-2016 URINE CULTURE [id number] Ordered: 07-Aug-2016 Immunization Name Dates Details Immunizations not documented [...] Status: Results Date Description Value Details 09-Jul-2016 16:22 Vaginitis Panel ( Trichomonas, Gardnerella, Patt sp.) 5615 T. VAGINALIS PROBE Negative Range: Negative GARDNERELLA PROBE POSITIVE (Abnormal) Range: Negative PATT SP. PROBE Negative Range: Negative 10-Jul-2016 15:21 Chlamydia/GC TMA Assay [id number] Comments: Roller performed at: [facility] [address] [place], [address], Conference Producer: Bob Reynolds D.O., MPHQuest Collection Date/Time: [id number] Results Received Date/Time: [id number] Reported Date /Time: FASTING:NO CHLAMYDIA TRACHOMATIS RNA, TMA NOT DETECTED Range: NOT DETECTED Comments: [VT]----- NEISSERIA GONORRHOEAE RNA, TMA NOT DETECTED Range: NOT DETECTED Comments: [VT]----- COMMENT SEE NOTE Comments: This test was performed using the APTIMA COMBO2 Assay([employer]The analytical performance characteristics of thisassay, when used to test SurePath specimens havebeen determined by [employer].[ VT]----- 11-Jul-2016 14:48 OB- [place] Depression Scale ( EPDS) I have been [...] (0) Never to me Total Score 6 09-Jul-2016 16:18 OB Dept- Ultrasound Quick Comments: Exam Date: 07/09/2016 10 :41Dictation Date: 07/09/2016 16:18 Look/No Charge XOB LIMITED NO CHARGE 07-Aug-2016 10:30 Urinalysis, reflex to Micro and Comments: Testing performed by [facility], [address] [place], [place] [address] [address] Culture ([facility]) 1626 pH 7.0 Range: 5.0-7.5 SP GRAVITY 1.015 [...]
--- OUTSIDE RECORDS SUMMARY | 2017-02-03 10:29 | External Medical Summary | Summary of Care ---
:1990 Author Name Salima Haas M.D. Address Unavailable Unavailable , Care Team Providers Name Role Phone Wadlo Roberson Salima Unavailable Unavailable No Assigned PCP-Pt [...] m2 Status: Results Date Description Value Details Results not documented Plan of Care Name Dates Details Planned Observations Planned Goals not documented Interventions Provided Medication ChangesMetoclopramide HCl - 10 MG Oral Tablet - Start Instructions Name Dates Details Instructions not documented Encounters Appointment; Salima Haas M.D. On 07-Aug-2016 Encounter Diagnosis: Problem not documented 10:00 Appointment; Salima Haas M.D. On 09-Jul-2016 Encounter Diagnosis: Problem not documented 11:15 Appointment; Salima Haas M.D. On 01-Jul-2016 Encounter Diagnosis: Problem not documented 09:00
--- OUTSIDE RECORDS SUMMARY | 2017-02-03 10:30 | External Medical Summary | Summary of Care ---
[...] 3 HRS 1720 Ordered: 11-Jul-2016 URINE CULTURE [id number] Ordered: 07-Aug-2016 Immunization Name Dates Details Immunizations [...] Body Surface Area Calculated 1.78 m2 Status: 09-Jul-2016 11:42 BP Systolic 118 mm[Hg] Status: Comments: Location: ; Position: BP Diastolic 70 mm[Hg] Status: Comments: Location: ; Position: Heart Rate 92 /min Status: Comments: Location: ; Height 60 in Status: Weight 182 lb Status: Body Mass Index Calculated 35.54 kg/m2 Status: Body Surface Area Calculated 1.79 m2 Status: Results Date Description Value Details 09-Jul-2016 12:52 Yasmany Glucose 1 HR 1102 GLUCOSE, BLOOD 163.0 mg/dl (Above high threshold) Range: 70.0-100.0 16:22 Vaginitis Panel ( Trichomonas, Gardnerella, Patt sp.) 5615 T. VAGINALIS PROBE Negative Range: Negative GARDNERELLA PROBE POSITIVE (Abnormal) Range: Negative PATT SP. PROBE Negative Range: Negative 10-Jul-2016 15:21 Chlamydia/GC TMA Assay [id number] Comments: [email or web address] performed at: [facility] [place], [address] [place] [address], [address], Tablet Making Machine Operator: Bob Reynolds D.O., MPHQuest Collection Date/Time: [id number] Results Received Date/Time: [id number] Reported Date /Time: FASTING:NO CHLAMYDIA TRACHOMATIS RNA, TMA NOT DETECTED Range: NOT DETECTED Comments: [KS]----- NEISSERIA GONORRHOEAE RNA, TMA NOT DETECTED Range: NOT DETECTED Comments: [NM]----- COMMENT SEE NOTE Comments: This test was performed using the APTIMA COMBO2 Assay([employer]The analytical performance characteristics of thisassay, when used to test SurePath specimens havebeen determined by [employer].[ NM]----- 11-Jul-2016 14:48 OB- [place] Depression Scale ( EPDS) I have been [...] 16:18 Look/No Charge XOB LIMITED NO CHARGE Plan of Care Name Dates Details Planned Observations Planned Goals not documented Planned Encounters Appointment; Provider: Salima Haas M.D. On 11-Sep-2016 09:15 Interventions Provided Medication ChangesMetroNIDAZOLE 0.75 % Vaginal Gel - CompletedLabs/Procedures/ ImagingURINE CULTURE [id number]; To be Done: 07 Aug 2016 Instructions Name Dates Details Instructions not documented Encounters Appointment; Salima Haas M.D. On 09-Jul-2016 Encounter Diagnosis: Problem not documented 11:15 Appointment; Salima Haas M.D. On 01-Jul-2016 Encounter Diagnosis: Problem not documented 09:00
--- OUTSIDE RECORDS SUMMARY | 2017-02-03 10:30 | External Medical Summary | Continuity of Care Document ---
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 Provider: Health PA, pregnancies, [address] third [id number] Medical rFan [place], 1522, weeks gestation Center [address] [place] [address], of Merrick Roberto, 120, [place] [id number], Erick, [facility] 120, [place] Erick NOONAN, tel:[phone] [place], , [place]. [id number]. tel: tel:[phone] John Suarez Supervision of Gross Referring In Womens other high risk 2-201 Maryann. Provider: Health PA, pregnancies, [address] third [id number] Medical Fran [place], 1522, weeks gestation Center [facility], of Merrick Roberto, 120, [place] [id number], [facility], [place] Erick NOONAN, tel:[phone] [place], , [place]. [id number]. tel: tel:[phone] John Suarez Supervision of Gross Referring In Womens other high risk 0-201 Maryann. Provider: Health PA, pregnancies, [address] third Herman [place], 1522, trimesterMaternal Center [address] [place] [address], care for benign Merrick Roberto, tumor of corpus 120, Center [id number], uteri, third Erick [facility] 120, [place] tri32 weeks Erick NOONAN, tel:[phone] gestation of [id number] [place], , [place]. [id number]. tel: tel:[phone] John Suarez Gestational Ken-2 Gross Referring In Womens Ultrasound diabetes mellitus 0-201 Maryann. Provider: Elisabeth BRAUN, in , [address] diet Medical [place], 1522, controlledMaterna Center [address] [place] [address], care for benign Dr, [facility] SHAISTA, tumor of corpus 120, Center [id number], uteri, third Suarez, Merrick 120, [place] tri32 weeks Erick NOONAN, tel:+[phone] gestation of [phone] [place], , [place]. [id number]. tel: tel:[phone] John Suarez Supervision of Ken-0 Gross Referring In Womens other high risk 6-201 Maryann. Provider: Elisabeth BRAUN, pregnancies, [address] third Medical Fran [place], 1522, trimesterMaternal Center [address] [place] [address], care for benign , [facility] SHAISTA, tumor of corpus 120, Center [id number], uteri, third Suarez, Merrick 120, [place] tri30 weeks Erick NOONAN, tel:+ gestation of [phone] [place], , [place]. [id number]. tel: tel:[phone] John Suarez Herpesviral Kadeem-1 Sobbing Referring In Womens infection, 9- [place]. Provider: Elisabeth BRAUN, unspecifiedSuperv [address] ision of other Medical Peters Roel, 1522, high risk Center [address] [place] [address], pregnancies, [address], Medical SHAISTA, second Suite Center [id number], trimesterAbnormal 120, Merrick 120, [place] glucose Erick Suarez, tel:+ complicating [place], [place], pregnancyOther [phone], [id number]. abnormal glucose [place]. tel:[phone] tel: [phone] John Suarez Acute Kadeem-0 Gross Referring In Womens pharyngitis, 2-201 Maryann. Provider: Elisabeth BRAUN, unspecifiedOther [address] pruritusSupervisi Medical Fran [place], 1522, on of other high Center [address] [place] [address], risk pregnancies, , [facility], second 120, Center [id number], [id number] weeks Suarez, Merrick 120, [place] gestation of Erick NOONAN, tel:[phone] [place], , [place]. [id number]. tel: tel: [phone] Associates Erick Supervision of Gross Referring In Womens other high risk 0-201 Maryann. Provider: Health PA, pregnancies, [address] [facility] Medical [place] J, 1522, trimesterGestatio Center [address], nal diabetes , [facility] Medical [place], mellitus in 120, Center [id number], , diet Erick, [facility] 120, [place] controlledOther Erick NOONAN, tel: abnormal [phone] [place], [id number] weeks , [place]. [id number]. gestation of tel: tel: [phone] Family History Family Member Diagnosis Age At [...] Record Payers Payer name Insurance type Covered libertarian ID Authorization(s) BCBS Out Of State [id number] BCBS Out Of State [id number] Social History Type Description Quantity Date Captured Alcohol Use Details No Caffeine Use Details Unknown Tobacco Use Status Unknown Smoking Status Never smoker Vital Signs Date / Height Weight BMI Pulse Blood Temperature Respiratory Body Head BMI Time: Rate Pressure Rate Surface Circumference percentile Area 36.5 -2017 8 8:42 kg/m AM eter (2) 189.90 37.0 128/80 -2017 lbs 8 mm[Hg] 8:44 kg/m AM eter (2) Chief Complaint And Reason For Visit Unknown Chief Complaint And Reason For Visit Reason For Referral Reason For Referral Unknown Plan Of Care Date Type Action Status Appointment Keiko Simpson BOOKED Future Order: Radiology Order Ultrasound OB Follow-up ([id number]) Ordered Date Type Problem Goal Intervention Status Start Date Unknown. History Of Present Illness Encounter Date Complaint History Of Present Illness This patient has no known history of present illness Functional Status Encounter Date Functional Assessment Cognitive Assessment Unknown Medications Administered Medication Instructions Dosage Effective Dates (start - stop) Status Comments Drug Treatment Unknown Instructions Date Instruction Additional Information Unknown
--- OUTSIDE RECORDS SUMMARY | 2017-02-03 10:30 | External Medical Summary | Summary of Care ---
[...] (Allergy) Status: Active Procedures Procedure Dates Details Yasmany Glucose 1 HR 1102 Ordered: 01-Jul-2016 OBSTETRIC PANEL 0 Ordered: 01-Jul-2016 OB Dept- Ultrasound Quick Look/No [...] 19-Jun-2016 15:20 BETA HCG 3500 BETA HCG 07694 mIU/mL (Above high Range: 0-5 threshold) Comments: Gestational age: 0.02-1 Weeks=5-50 mIU/mL1-2 Weeks= 50-500 mIU/mL2-3 Hdnlv=886-6883 mIU/mL3-4 Ytrow=569-93,000 mIU/mL4-5 Weeks=1,000 -50,000 mIU/mL5-6 Weeks=10,000-100,000 mIU/mL6-8 Weeks=15,000-200,000 mIU/mL2-3 months=10,000-100,000 mIU/mL----- 01-Jul-2016 11:14 Urinalysis w/ Microscopic 8006 pH 6.5 [...] Range: 0-5 EPITH 6-10 /HPF Range: 0-10 Plan of Care Name Dates Details Planned Observations Planned Goals not documented Planned Encounters Appointment; Provider: Salima Haas M.D. On 09-Jul-2016 11:00 Instructions Name Dates Details Instructions not documented Encounters Appointment; Salima Haas M.D. On 01-Jul-2016 Encounter Diagnosis: Problem not documented 09:00
--- OUTSIDE RECORDS SUMMARY | 2017-02-03 10:30 | External Medical Summary | Summary of Care ---
[...] Quantity: 12 Refills: 0 Salima Haas M.D. 01-Jul-2016 Active Ondansetron 4 MG Oral Tablet Dispersible TAKE 1 TABLET EVERY 4 HOURS NEEDED FOR NAUSEA AND VOMITING. Quantity: 20 Refills: 0 Salima Haas M.D. 09-Jul-2016 Active Allergies and Adverse Reactions Name Dates Details No Known Drug Allergies (Allergy) Status: Active Procedures Procedure Dates Details Procedures not documented Immunization Name Dates Details Immunizations not documented Social History Smoking Status Name Dates Details Unknown if ever smoked Vital Signs Date Test Result Details No Known Vitals to report Results Date Description Value Details Results not documented Plan of Care Name Dates Details Planned Observations Planned Goals not documented Planned Encounters Appointment; Provider: Salima Haas M.D. On 11-Sep-2016 09:15 Interventions Provided Medication ChangesMetroNIDAZOLE 0.75 % Vaginal Gel - Start Instructions Name Dates Details Instructions not documented Encounters Appointment; Salima Haas M.D. On 09-Jul-2016 Encounter Diagnosis: Problem not documented 11:15 Appointment; Salima Haas M.D. On 01-Jul-2016 Encounter Diagnosis: Problem not documented 09:00
--- OUTSIDE RECORDS SUMMARY | 2017-02-03 10:30 | External Medical Summary | Continuity of Care Document ---
:1990 Author Organization [facility] Address [address] [place], [place] [address] Phone Allergies, Adverse Reactions, Alerts Substance Reaction [...] Effective Dates (start - stop) Clinical Status Gestational diabetes mellitus in - , diet [...] third tri 30 weeks gestation of - Procedures Procedure Date Ultrasnd preg uterus, flwup/repeat Results Test Name Date and Time Measure Units Reference Range Abnormal Flag Comments Unknown Advance Directives Directive Yes / No Effective Date File Name Unknown Encounters Encounter Practice Location Reason(s) Diagnoses Date Provider Care Team Description For Visit Members John Suarez Supervision of Gross Referring In Womens other high risk 8-201 Maryann. Provider: Health KADE, pregnancies, [address] third [id number] Herman [place], 1522, weeks gestation Center [address] [place] [address], of Merrick Roberto, 120, [place] [id number], [facility], [place] Erick NOONAN, tel:+ [phone] [place], , [place]. [id number]. tel: tel: [phone] John Suarez Supervision of Gross Referring In Womens other high risk 2-201 Maryann. Provider: Health KADE, pregnancies, [address] third [email or web address] Herman [place], 1522, weeks gestation Center [facility] [place], of Merrick Roberto, 120, [place] [id number], [facility], [place] Erick NOONAN, tel: [phone] [place], , [place]. [id number]. tel: tel: [phone] John Suarez Supervision of Gross Referring In Womens other high risk 0-201 Maryann. Provider: Health PA, pregnancies, [address] third Herman [place], 1522, trimesterMaternal Center [address] [place] [address], care for benign Merrick Roberto, tumor of corpus 120, [place] [id number], uteri, third Erick [facility] 120, [place] tri32 weeks Erick NOONAN, tel:[phone] gestation of [id number] [place], , [place]. [id number]. tel: tel:[phone] Suarez Gestational Ken-2 Gross Referring In Womens Ultrasound diabetes mellitus 0-201 Maryann. Provider: Elisabeth BRAUN, in , [address] diet Medical Fran [place], 1522, controlledMaterna Center [address] [place] [address], care for benign , [facility] SHAISTA, tumor of corpus 120, Center [id number], uteri, third Suarez, Merrick 120, [place] tri32 weeks Erick NOONAN, tel:+[phone] gestation of [id number] [place], , [place]. [id number]. tel: tel:[phone] John Suarez Supervision of Ken-0 Gross Referring In Womens other high risk 6-201 Maryann. Provider: Elisabeth BRAUN, pregnancies, [address] third Medical Fran [place], 1522, trimesterMaternal Center [address] [place] [address], care for benign , [facility] SHAISTA, tumor of corpus 120, Center [id number], uteri, third Suarez, Mer[place] 120, [place] tri30 weeks Erick NOONAN, tel:+[phone] gestation of [phone] [place], , [place]. [id number]. tel: tel:[phone] John Suarez Herpesviral Kadeem-1 Sobbing Referring In Womens infection, 9- [place]. Provider: Elisabeth BRAUN, unspecifiedSuperv [address] ision of other Medical Fran [place], 1522, high risk Center [address] [place] [address], pregnancies, [address], Medical SHAISTA, second Suite Center [id number], trimesterAbnormal 120, Merrick 120, [place] glucose Erick Suarez, tel:[phone] complicating [place], [place], pregnancyOther [id number], [id number]. abnormal glucose [place]. tel:+316 tel: [phone] John Suarez Acute Kadeem-0 Gross Referring In Womens pharyngitis, 2-201 Maryann. Provider: Elisabeth BRAUN, unspecifiedOther [address] pruritusSupervisi Medical [place], 1522, on of other high Center [address] [place] [address], risk pregnancies, Merrick Roberto [facility] SHAISTA, second 120, Center [id number], [id number] weeks Suarez, Merrick 120, [place] gestation of Erick NOONAN, tel:[phone] [place], , [place]. [id number]. tel: tel: [phone] Associates Erick Supervision of Gross Referring In Womens other high risk 0-201 Maryann. Provider: Health PA, pregnancies, [address] PO Box [facility] Medical [place] J, 1522, trimesterGestatio Center 700 [place], nal diabetes , [facility] Medical [place], mellitus in 120, Center [id number], , diet Erick, [facility] 120, [place] controlledOther Erick NOONAN, tel: abnormal [phone] SHAIST[place], [id number] weeks , [place]. [id number]. gestation of tel: tel: [phone] Family History Family Member Diagnosis Age At [...] Record Payers Payer name Insurance type Covered democrat ID Authorization(s) BCBS Out Of State [id number] BCBS Out Of State [id number] Social History Type Description Quantity Date Captured Unknown Vital Signs Date / Height Weight BMI Pulse Blood Temperature Respiratory Body Head BMI Time: Rate Pressure Rate Surface Circumference percentile Area Unknown Chief Complaint And Reason For Visit Unknown Chief Complaint And Reason For Visit Reason For Referral Reason For Referral Unknown Plan Of Care Date Type Action Status Appointment Keiko Simpson BOOKED Future Order: Radiology Order Ultrasound OB Follow-up ([id number]) Ordered Date Type Problem Goal Intervention Status [...]
--- OUTSIDE RECORDS SUMMARY | 2017-02-03 10:30 | External Medical Summary | Summary of Care ---
[...] 19-Jun-2016 15:20 BETA HCG 3500 BETA HCG 30881 mIU/mL (Above high Range: 0-5 threshold) Comments: Gestational age: 0.02-1 Weeks=5-50 mIU/mL1-2 Weeks= 50-500 mIU/mL2-3 Lznsd=734-6255 mIU/mL3-4 Lyakd=697-42,000 mIU/mL4-5 Weeks=1,000 -50,000 mIU/mL5-6 Weeks=10,000-100,000 mIU/mL6-8 Weeks=15,000-200,000 [...] ANTIBODY SCREEN Negative -Jul-2016 11:13 URINE CULTURE [id number] Comments: [facility] performed at: [facility], [address] [place], [address], Straddle Bug Operator: Bob Reynolds D.O., MPHQuest Collection Date/Time: [id number] Results Received Date/Time: [id number] Reported Date /Time: [id number] FASTING:NOQuest performed at : [facility], [address] [place] [place], [address], Straddle Bug Operator: Bob Reynolds D.O., MPHQuest Collection Date/Time: [id number] Results Received Date/Time: [id number] Reported Date/Time: FASTING:NO CULTURE, URINE, ROUTINE SEE NOTE Comments: CULTURE, URINE, ROUTINE MICRO NUMBER: [id number] TEST STATUS: FINAL SPECIMEN SOURCE: URINE , CLEAN CATCH SPECIMEN QUALITY: ADEQUATE RESULT: No Growth[KS]---- - 14:43 RPR [id number] Comments: Testing performed at: [DA] [facility] [address], [place], [address], , Straddle Bug Operator: FRANCISCO Minor MD RPR Non Reactive Range: Non Reactive 14:43 Hep B Surface Ag [id number] Comments: Testing performed at: [DA] [place] [address], [place], [address], , Straddle Bug Operator: FRANCISCO Minor MD HBsAg Screen Negative Range: Negative 14:43 Drug Screen ( 7 Drug Bundle) [id number] Comments: Testing performed at: [HD ] [facility] [address] [facility], [place], [address], Phone: , Straddle Bug Operator: Heri Pack MD AMPHETAMINES, URINE Negative ng/mL Range: Cmddwu=5421 Comments: Amphetamine test includes Amphetamine and Methamphetamine.----- BARBITURATES Negative ng/mL Range: Mvfmgw=559 BENZODIAZEPINES Negative ng/mL Range: Qbbefg=674 CANNABINOID Negative ng/mL Range: Cutoff=50 COCAINE (METAB.) Negative ng/mL Range: Fowhbe=039 OPIATES Negative ng/mL Range: Gkkeda=491 Comments: Opiate test includes Codeine and Morphine only.----- PHENCYCLIDINE Negative ng/mL Range: Cutoff=25 Plan of Care Name Dates Details Planned Observations Planned Goals not documented Interventions Provided Medication ChangesDiclegis 10-10 MG Oral Tablet Delayed Release - StartLabs/ Procedures/ImagingOBSTETRIC PANEL 0; To be Done: 01 Jul 2016OSullivan Glucose 1 HR 1102; To be Done: 01 Jul 2016 Instructions Name Dates Details Instructions not documented Encounters Appointment; Salima Haas M.D. On 01-Jul-2016 Encounter Diagnosis: Problem not documented 09:00
--- OUTSIDE RECORDS SUMMARY | 2017-02-03 10:30 | External Medical Summary | Summary of Care ---
:1990 Author Name Salima Haas M.D. Address Unavailable Unavailable , Care Team Providers Name Role Phone No Assigned PCP-Pt Confirmed Unavailable Unavailable Functional Status Functional Status Health Issues Name Dates Details Functional status health issues are not documented Status: Cognitive Status Health Issues Name Dates Details Cognitive status health issues are not documented Status: Problems Name Dates Details Encounter for test, result unknown (V72.40, Z32.00) Status: Active Medications Name Dates Details Medication not documented Allergies and Adverse Reactions Name Dates Details Allergy history not documented Status: Procedures Procedure Dates Details BETA HCG 3500 Ordered: 19-Jun-2016 Immunization Name Dates Details Immunizations not documented Social History Smoking Status Name Dates Details Unknown if ever smoked Vital Signs Date Test Result Details No Known Vitals to report Results Date Description Value Details Results not documented Plan of Care Name Dates Details Planned Observations Planned Goals not documented Interventions Provided Labs/Procedures/ImagingBETA HCG 3500; To be Done: 19 Jun 2016 Instructions Name Dates Details Instructions not documented Encounters Non-Appointment; On 19-Jun-2016 Encounter Diagnosis: Problem not documented 12:00
--- OUTSIDE RECORDS SUMMARY | 2017-02-03 10:30 | External Medical Summary | Summary of Care ---
:1990 Author Name [address], Brant, Connie Hassan Address [address] [place], [place] [address] Care Team Providers Name Role Phone Armen MART[address], Brant, Connie Hassan Unavailable Unavailable Salima Haas M.D. Unavailable Unavailable No Assigned PCP-Pt Confirmed Unavailable [...] (Allergy) Status: Active Procedures Procedure Dates Details OB Dept- Ultrasound Screening Ordered: 19-Sep-2016 Immunization Name Dates Details Immunizations not documented [...] to Micro and Comments: Testing performed by [facility], [facility] [address] [address] Culture ([facility]) 3476 pH 7.0 Range: 5.0-7.5 SP GRAVITY 1.020 [...] documented Encounters Appointment; Salima Haas M.D. On 24-Sep-2016 Encounter [...]
--- OUTSIDE RECORDS SUMMARY | 2017-02-03 10:30 | External Medical Summary | Summary of Care ---
:1990 Author Name Salima aHas M.D. Address Unavailable Unavailable , Care Team [...] Dates Details OBSTETRIC PANEL 2130 Ordered: 01-Jul-2016 Urinalysis w/ Microscopic 8006 Ordered: 01-Jul-2016 URINE CULTURE [id number] Ordered: 01-Jul-2016 Drug Screen ( 7 Drug Bundle) [id number] Ordered: 01-Jul-2016 Yasmany Glucose 1 HR 1102 Ordered: 01-Jul-2016 Immunization Name Dates Details Immunizations not documented [...] 19-Jun-2016 15:20 BETA HCG 3500 BETA HCG 11124 mIU/mL (Above high Range: 0-5 threshold) Comments: Gestational age: 0.02-1 Weeks=5-50 mIU/mL1-2 Weeks= 50-500 mIU/mL2-3 Srbfd=565-8024 mIU/mL3-4 Lxqac=352-85,000 mIU/mL4-5 Weeks=1,000 -50,000 mIU/mL5-6 Weeks=10,000-100,000 mIU/mL6-8 Weeks=15,000-200,000 mIU/mL2-3 months=10,000-100,000 mIU/mL----- Plan of Care Name Dates Details Planned Observations Planned Goals not documented Planned Encounters Appointment; Provider: Salima Haas M.D. On 09-Jul-2016 11:00 Interventions Provided Medication ChangesDiclegis 10-10 MG Oral Tablet Delayed Release - StartLabs/ Procedures/ImagingDrug Screen ( 7 Drug Bundle) [id number]; To be Done: 01 Jul 2016OBSTETRIC PANEL 2130; To be Done: 01 Jul 2016OSullivan Glucose 1 HR 1102; To be Done: 01 Jul 2016Urinalysis w/ Microscopic 8006; To be Done: 01 Jul 2016URINE CULTURE X84227; To be Done: 01 Jul 2016 Instructions Name Dates Details Instructions not documented Encounters Appointment; Salima Haas M.D. On 01-Jul-2016 Encounter Diagnosis: Problem not documented 09:00
--- OUTSIDE RECORDS SUMMARY | 2017-02-03 10:30 | External Medical Summary | Continuity of Care Document ---
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, third tri 30 weeks gestation of - Gestational diabetes mellitus in - , diet controlled Supervision of other high risk - pregnancies, second trimester Other abnormal glucose - 21 weeks gestation of - Herpesviral infection, unspecified - Supervision of other high risk - pregnancies, second trimester Abnormal glucose complicating - Other abnormal glucose - Acute pharyngitis, unspecified - Other pruritus - Supervision of other high risk - pregnancies, second trimester 25 weeks gestation of - Gestational diabetes mellitus [...] For Visit Members John Suarez Supervision of Nov-2 Gross Referring In Womens other high risk 0-201 Maryann. Provider: Elisabeth BRAUN, pregnancies, [address] [place], 1522, trimesterMaternal Center [address], care for benign Dr, [facility] SHA[facility]A, tumor of corpus 120, Center [id number], uteri, third Suarez, [place] 120, [place] tri32 weeks Erick NOONAN, tel:+[phone] gestation of [id number] [place], , [place]. [id number]. tel: tel:[phone] John Suarez Gestational Nov-2 Gross Referring In Womens Ultrasound diabetes mellitus 0-201 Maryann. Provider: Elisabeth BRAUN, in , [address] [facility] Medical [place], 1522, controlledMaterna Center [address] [place] [address], care for benign Dr, [facility] SHA[facility]A, tumor of corpus 120, Center [id number], uteri, third Suarez, [place] 120, [place] tri32 weeks Erick NOONAN, tel:+[phone] gestation of [id number] [place], , [place]. [id number]. tel: tel:[phone] John Suarez Supervision of Nov-0 Gross Referring In Womens other high risk 6-201 Maryann. Provider: Elisabeth BRAUN, pregnancies, 7 [address] [place], 1522, trimesterMaternal Center [address] [place] [address], care for benign Dr, [facility] SHA[facility], tumor of corpus 120, Center [id number], uteri, third Suarez, [place] 120, [place] tri30 weeks Erick NOONAN, tel:+[phone] gestation of [id number] [place], , [place]. [id number]. tel: tel:[phone] John Suarez Herpesviral Kadeem-1 Sobbing Referring In Womens infection, 9- [place]. Provider: Elisabeth BRAUN, unspecifiedSuperv [address] [facility] [place], 1522, high risk Center [address], pregnancies, Drive, Medical [place], second Suite Center [id number], trimesterAbnormal 120, [place]rick 120, [place] glucose Erick Suarez, tel:+2 complicating [place], [place], pregnancyOther [id number], [id number]. abnormal glucose [place]. tel: tel: [phone] Associates Erick Acute Kadeem-0 Gross Referring In Womens pharyngitis, 2-201 Amryann. Provider: Health KADE, unspecifiedOther [address] pruritusSupervisi Medical Peters J, 1522, on of other high Center [address], risk pregnancies, Dr, [facility], second 120, Center [id number], [id number] weeks Suarez, [place] 120, [place] gestation of Erick NOONAN, tel:[phone] [place], , [place]. [id number]. tel: tel: [phone] Associates [facility] Gestational September-1 Gross Referring In Womens diabetes mellitus 0-201 Maryann. Provider: Elisabeth BRAUN, in , [address] diet Medical Peters J, 1522, controlledSupervi Center [address], niyah of other , [facility], high risk 120, Center [id number], pregnancies, Suarez, [place]rick 120, [place] second Erick NOONAN, tel:[phone] trimesterOther [id number] [place], abnormal , [place]. [id number]. [email or web address] weeks tel: tel: gestation of [phone] Family History Family Member Diagnosis Age At [...] libertarian ID Authorization(s) BCBS Out Of State [id number] BCBS Out Of [place] [id number] Social History Type Description Quantity Date Captured Alcohol Use Details No Caffeine Use Details Unknown Tobacco Use Status Unknown Smoking Status Never smoker Vital Signs Date / Height Weight BMI Pulse Blood Temperature Respiratory Body Head BMI Time: Rate Pressure Rate Surface Circumference percentile Area 36.2 -2017 2 11:15 kg/m AM eter (2) 187.30 36.5 120/80 -2017 lbs 8 mm[Hg] 11:20 kg/m AM eter (2) Chief Complaint And Reason For Visit Unknown Chief Complaint And Reason For Visit Reason For Referral Reason For Referral Unknown Plan Of Care Date Type Action Status Appointment Keiko Simpson BOOKED Future Order: Radiology Order Ultrasound OB Follow-up ([id number]) Ordered Date Type Problem Goal Intervention Status [...]
--- OUTSIDE RECORDS SUMMARY | 2017-02-03 10:30 | External Medical Summary | Summary of Care ---
[...] 19-Jun-2016 15:20 BETA HCG 3500 BETA HCG 74512 mIU/mL (Above high Range: 0-5 threshold) Comments: Gestational age: 0.02-1 Weeks=5-50 mIU/mL1-2 Weeks= 50-500 mIU/mL2-3 Hsdyz=375-9764 mIU/mL3-4 Yfypw=950-17,000 mIU/mL4-5 Weeks=1,000 -50,000 mIU/mL5-6 Weeks=10,000-100,000 mIU/mL6-8 Weeks=15,000-200,000 [...] ANTIBODY SCREEN Negative 02-Jul-2016 11:13 URINE CULTURE [id number] Comments: Quest performed at: [facility], [place], [address], Yard Truck Driver: Bob Reynolds D.O., MPHQuest Collection Date/Time: 0Quest Results Received Date/Time: [id number] Reported Date /Time: FASTING:NOQuest performed at : [facility], [place], [address], Yard Truck Driver: Bob Reynolds D.O., MPHQuest Collection Date/Time: [id number] Results Received Date/Time: [id number] Reported Date/Time: FASTING:NO CULTURE, URINE, ROUTINE SEE NOTE Comments: CULTURE, URINE, ROUTINE MICRO NUMBER: [id number] TEST STATUS: FINAL SPECIMEN SOURCE: URINE , CLEAN CATCH SPECIMEN QUALITY: ADEQUATE RESULT: No Growth[KS]---- - 14:43 RPR [id number] Comments: Testing performed at: [DA] [facility], [address] [place] [address], [place], [address], , Yard Truck Driver: FRANCISCO Minor MD RPR Non Reactive Range: Non Reactive 14:43 Hep B Surface Ag [id number] Comments: Testing performed at: [DA] [facility], [address] [place] [address], [place], [address], , Yard Truck Driver: FRANCISCO Minor MD HBsAg Screen Negative Range: Negative 14:43 Drug Screen ( 7 Drug Bundle) [id number] Comments: Testing performed at: [ ] [address], [address], Phone: , Yard Truck Driver: Hrei Pack MD AMPHETAMINES, URINE Negative ng/mL Range: Vzbecp=1435 Comments: Amphetamine test includes Amphetamine and Methamphetamine.----- BARBITURATES Negative ng/mL Range: Llrpeh=120 BENZODIAZEPINES Negative ng/mL Range: Sqauli=916 CANNABINOID Negative ng/mL Range: Cutoff=50 COCAINE (METAB.) Negative ng/mL Range: Kbbpmw=476 OPIATES Negative ng/mL Range: Xuovcx=044 Comments: Opiate test includes Codeine and Morphine only.----- PHENCYCLIDINE Negative ng/mL Range: Cutoff=25 09-Jul-2016 12:52 Yasmany Glucose 1 HR 1102 GLUCOSE, BLOOD 163.0 mg/dl (Above high threshold) Range: 70.0-100.0 16:22 Vaginitis Panel ( Trichomonas, Gardnerella, Patt sp.) 5615 T. VAGINALIS PROBE Negative Range: Negative GARDNERELLA PROBE POSITIVE (Abnormal) Range: Negative PATT SP. PROBE Negative Range: Negative 10-Jul-2016 15:21 Chlamydia/GC TMA Assay [id number] Comments: [employer] performed at: [facility], [address] [place], [address], Yard Truck Driver: Bob Reynolds D.O., MPHQuest Collection Date/Time: [id number] Results Received Date/Time: [id number] Reported Date /Time: FASTING:NO CHLAMYDIA TRACHOMATIS RNA, TMA NOT DETECTED Range: NOT DETECTED Comments: [KS]----- NEISSERIA GONORRHOEAE RNA, TMA NOT DETECTED Range: NOT DETECTED Comments: [KS]----- COMMENT SEE NOTE Comments: This test was performed using the APTIMA COMBO2 Assay([employer]The analytical performance characteristics of thisassay, when used to test SurePath specimens havebeen determined by [facility] [place]]----- 11-Jul-2016 14:48 OB- Java Depression Scale ( EPDS) I have been [...]
--- OUTSIDE RECORDS SUMMARY | 2017-02-03 10:30 | External Medical Summary | Continuity of Care Document ---
:1990 Author Organization [facility] Address [address] [place], [place] [id number] Phone Allergies, Adverse Reactions, Alerts Substance Reaction [...] third trimester 35 weeks gestation of - Gestational diabetes mellitus [...] - Encounter for screening of - mother Supervision of other high risk - pregnancies, third trimester 37 weeks gestation of - Procedures Procedure Date [...] Maryann. Provider: Elisabeth BRAUN, pregnancies, 7 [address] third [email or web address] [place], 1522, [facility], Merrick Roberto [place], 120, [place] [id number], [facility], Erick NOONAN, tel:[phone] [place] [address] , . [id number]. tel: tel:[phone] Associates [facility] Supervision of Dec- Gross Referring In Womens other high risk 2-201 Maryann. Provider: Elisabeth BRAUN, pregnancies, 7 [address] third [place], 1522, weeks gestation Center [address] [place] [address], of Merrick Roberto, pregnancyEncounte 120, [place] [id number], r for [facility] 120, screening of Erick NOONAN, tel:+ mother [phone] [place] [address] , . [id number]. tel: tel:[phone] John Suarez Supervision of Dec- Gross Referring In Womens other high risk 4-201 Maryann. Provider: Elisabeth BRAUN, pregnancies, [address] third [id number] [place], 1522, weeks gestation Center [address] [place] [address], [address] [facility] Herman [place], 120, Center [id number], [facility], [place] Erick NOONAN, tel:+ [phone] [place], , [place]. [id number]. tel: tel:[phone] John Suarez Supervision of Aug-0 Gross Referring In Womens other high risk 8-201 Maryann. Provider: Elisabeth BRAUN, pregnancies, [address] third [place], 1522, weeks gestation Center [address] [place] [address], of Merrick Roberto, 120, Center [id number], [facility], [place] Erick NOONAN, tel:[phone] [place], , [place]. [id number]. tel: tel:[phone] John Suarez Supervision of Aug-0 Gross Referring In Womens other high risk 2-201 Maryann. Provider: Elisabeth BRAUN, pregnancies, 7 [address] third [email or web address] [place], 1522, weeks gestation Center [address] [place] [address], of Merrick Roberto [place], 120, Center [id number], [facility] 120, [place] Erick NOONAN, tel:[phone] [place], , [place]. [id number]. tel: tel:[phone] John Suarez Supervision of Nov-2 Gross Referring In Womens other high risk 0-201 Maryann. Provider: Elisabeth BRAUN, pregnancies, [address] third [place], 1522, trimesterMaternal Center [address] [place] [address], care for benign Dr [facility] SHAISTA, tumor of corpus 120, Center [id number], uteri, third [facility] 120, [place] tri32 weeks Erick NOONAN, tel:+[phone] gestation of [id number] [place], , [place]. [id number]. tel: tel:[phone] John Suarez Gestational Nov-2 Gross Referring In Womens Ultrasound diabetes mellitus 0-201 Maryann. Provider: Elisabeth BRAUN, in , [address] diet [place], 1522, controlledMaterna Center [address] [place] [address], care for benign Merrick Roberto, tumor of corpus 120, Center [id number], uteri, third Suarez, [place] 120, [place] tri32 weeks SHAISTAErick, tel:+[phone] gestation of [id number] [place], , [place]. [id number]. tel: tel:[phone] John Suarez Supervision of Ken-0 Gross Referring In Womens other high risk 6-201 Maryann. Provider: Health KADE, pregnancies, [address] third [email or web address] [place], 1522, weeks gestation Center [address] [place] [address], of Merrick Roberto, pregnancyMaternal 120, Center [id number], care for benign Suarez, [place] 120, [place] tumor of corpus Erick NOONAN, tel:+[phone] uteri, third tri [id number] [place], , [place]. [id number]. tel: tel:[phone] John Suarez Herpesviral Kadeem-1 Sobbing Referring In Womens infection, 9- [place]. Provider: Elisabeth BRAUN, unspecifiedSuperv [address] ision of other [place], 1522, high risk Center [address] [place] [address], pregnancies, Drive, Medical SHAISTA, second Suite Center [id number], trimesterAbnormal 120, Merrick 120, [place] glucose Erick Erick, tel:[phone] complicating [place], [place], pregnancyOther [address], [id number]. abnormal glucose [place]. tel: tel: [phone] John Suarez Acute Kadeem-0 Gross Referring In Womens pharyngitis, 2-201 Maryann. Provider: Elisabeth BRANU, unspecifiedOther 7 [address] pruritusSupervisi [place], 1522, on of other high Center [address] [place] [address], risk pregnancies, DrMerrick, second 120, Center [id number], [email or web address] weeks Suarez, [place] 120, [place] gestation of SHAISTA Suarez, tel:[phone] [place], , [place]. [id number]. tel: tel:+ [phone] Associates Erick Gestational September- Gross Referring In Womens diabetes mellitus 0-201 Maryann. Provider: Health KADE, in , 7 [address] [place], 1522, controlledSupervi Center 700 niyah Mtz of other , Merrick Medical [place], high risk 120, Center [id number], pregnancies, Suarez, [place] 120, [place] second Erick NOONAN, tel:2 trimesterOther [id number] [place], [id number] abnormal , [place]. [id number]. [id number] weeks tel: tel: gestation of [phone] Family History Family Member Diagnosis Age At [...] party ID Authorization(s) BCBS Out Of [place] [id number] BCBS Out Of [place] [id number] Social History Type Description Quantity Date Captured Alcohol Use Details No Caffeine Use Details Unknown Tobacco Use Status Unknown Smoking Status Never smoker Vital Signs Date / Height Weight BMI Pulse Blood Temperature Respiratory Body Head BMI Time: Rate Pressure Rate Surface Circumference percentile Area 199.40 38.9 138/88 -2017 lbs 4 mm[Hg] 3:48 kg/m PM eter (2) Chief Complaint And Reason For Visit Unknown Chief Complaint And Reason For Visit Reason For Referral Reason For Referral Unknown Plan Of Care Date Type Action Status Appointment Keiko Simpson BOOKED Future Order: Radiology Order Ultrasound OB Follow-up ([id number]) Ordered Date Type Problem Goal Intervention Status [...]
[2017-02-03 10:39] VITALS: BMI 39.0
[~2017-02-03 12:41] MED LIST: ACETAMINOPHEN 500 MG TABLET PO PRN; CALCIUM CARBONATE Chewable 500mg TABLET PO PRN; CARBOPROST 250 MCG/ML INJECTION IM PRN; LIDOCAINE 1% (10mg/ml) 2mL INJ PF SDV ID PRN; MAG-AL + SIM ORAL LIQUID 30ml PO PRN; METHYLERGONOVINE 0.2 MG/ML INJECTION IM PRN; SALINE FLUSH 10ml SYRINGE IVF PRN; ZOLPIDEM 5 MG TABLET PO PRN
[2017-02-03] MEDS ORDERED: DINOPROSTONE 10 MG VAGINAL INSERT VG ONE (16:19)
[2017-02-03] MEDS ORDERED: SALINE FLUSH 10ml SYRINGE IVF PRN (16:19)
[2017-02-03] MEDS ORDERED: TERBUTALINE 1 MG/ML VIAL SQ PRN (16:19)
[2017-02-03] MEDS: HYDROCODONE/APAP 5mg/325mg TABLET PO PRN (20:54)
[2017-02-04] MEDS: LR 1,000 ML IV SCH ×2 (04:58→16:58)
[2017-02-04] MEDS: D5LR 1,000 ML IV PRN ×2 (04:59→13:28)
[2017-02-04] MEDS ORDERED: OXYTOCIN DRIP 30 UNIT/500 ML ML IV PRN ×2 (05:00→06:00)
[2017-02-04] MEDS ORDERED: D5LR 1,000 ML IV PRN (06:00)
--- NOTE | 2017-02-04 07:22 | Anesthesia Preoperative Report ---
Anesthesia Epidural/Spinal Rec - Date and Time Date: 02/04/17 Preoperative Diagnosis: PIH Procedure: Labor Epidural Plan: Epidural - Vital Signs Vital Signs: Temperature 97.9 F 02/04/17 02:01 Pulse Rate 88 02/04/17 02:01 Respiratory Rate 18 02/03/17 10:26 Blood Pressure 141/67 H 02/04/17 02:01 Pulse Oximetry 99 02/03/17 10:26 NPO since: 0500 /Para: P:0 Heart Rate: 140 Height and Weight: 1.5m - Medictaions & Allergies Inpatient Medications: Current Medications Acetaminophen (Tylenol) 500 - 1,000 mg PO Q4H PRN PRN Reason: Pain Acetaminophen/Hydrocodone Bitart (Haworth 5/325) 1 - 2 tab PO Q4H PRN PRN Reason: Pain Last Admin: 02/03/17 20:54 Dose: 1 tab Al Hydroxide/Mg Hydroxide (Maalox Plus) 30 ml PO Q3H PRN PRN Reason: Indigestion Calcium Carbonate (Tums) 500 - 1,000 mg PO Q2H PRN PRN Reason: Indigestion Carboprost Tromethamine (Hemabate) 250 mcg IM O PRN PRN Reason: .Downtime Dextrose/Lactated Ringer's (Dextrose 5%-Lactated Ringers) 1,000 mls @ 125 mls/ hr IV .Q8H PRN PRN Reason: Labor Last Admin: 02/04/17 04:59 Dose: 125 mls/hr Oxytocin (Pitocin Drip) 30 unit in 500 mls @ 2 mls/hr IV .Q24H PRN; Protocol PRN Reason: Induction/Augmentation Last Admin: 02/04/17 04:59 Dose: 2 mls/hr Lactated Ringer's (Lactated Ringers) 1,000 mls @ 125 mls/hr IV .Q8H ROSARIO Last Admin: 02/04/17 04:58 Dose: 125 mls/hr Lidocaine HCl (Xylocaine-Mpf 1% Vial) 0.2 mg ID O PRN PRN Reason: IV Start Methylergonovine Maleate (Methergine) 0.2 mg IM O PRN Misoprostol (Cytotec) 800 mcg ID ONCE PRN Sodium Chloride (Iv Flush) 10 - 80 ml IVF PRN PRN PRN Reason: Flushing Sodium Chloride (Iv Flush) 10 - 80 ml IVF PRN PRN PRN Reason: Flushing Zolpidem Tartrate (Ambien) 5 mg PO O PRN PRN Reason: Insomnia Allergies/Adverse Reactions: Allergies Allergy/AdvReac Type Severity Reaction Status Date / Time No Known Allergies Allergy Verified 01/20/17 12:26 - Home Medications Home Medications: Home Medications Medication Instructions Recorded Confirmed Type Acetaminophen [Acetaminophen Extra 500 mg PO Q6HPRN PRN 02/03/17 02/03/17 History Strength] Acyclovir 1 tab PO TID 02/03/17 02/03/17 History CALCIUM CARBONATE Chewable [Tums] 1 tab PO Q2-4HR 02/03/17 02/03/17 History Vit Calc,Iron,Folic 1 each PO 02/03/17 History [ Vitamins] - Medical History Other History: Reports: Now - Surgical History Anesthesia Reactions: None Hx Family Anesthesia Reaction: No History of Motion Sickness: No - Social History Second Hand Exposure: No Substance Use Type: does not use Alcohol Intake Frequency: does not drink - Pertinent Findings Lab Data: CBC and BMP 02/04/17 04:59 02/04/17 04:59 BMP 02/03/17 02/04/17 10:30 04:59 Sodium 140 139 Potassium 3.9 4.1 Chloride 111 H 111 H Carbon Dioxide 19 L 20 L BUN 11.0 11.0 Creatinine 0.8 0.9 Glucose 80 76 Calcium 8.9 9.2 Liver Function 02/03/17 02/04/17 Range/Units 10:30 04:59 Total Bilirubin 0.40 0.40 (0.20-1.30) MG/DL AST 22 22 (14-36) U/L ALT 30 30 (9-52) U/L Alkaline Phosphatase 143 H 156 H (38-126) U/L Albumin 3.5 3.6 (3.5-5.0) G/DL EKG Rhythm: Normal Sinus Rhythm - Physical Exam Respiratory Exam: lungs clear Cardiovascular Exam: regular rate and rhythm - Airway Assessment Mallampati Score: II TMD: 2 Fingerbreadths Neck Extension: good Overall Assessment: may be difficult intubation - ASA ASA Score: 2 - Discussion Discussion: Discussed risks/options/alternatives of anesthesia and questions answered. Patient consents. Nursing pain assessment noted. Anesthesia Discussion: spouse Attestation Statement: Prior to the delivery of any anesthetic medication, I examined the patient, developed the plan, obtained the patient's consent and discussed the risk and benefits of the procedure with the patient/guardian.
[2017-02-04] MEDS ORDERED: NALOXONE 0.4 MG/ML INJECTION IVP PRN (07:23)
[2017-02-04] MEDS ORDERED: ONDANSETRON 4 MG/2 ML INJECTION IVP PRN (07:23)
[2017-02-04] MEDS ORDERED: ROPIVACAINE 1% 10MG/ML INJ 200 MG, SUFentanil 50 MCG in NS 100 ML EPI PRN (07:23)
[2017-02-04] MEDS ORDERED: DiphenhydrAMINE 50 MG/ML INJECTION IVP PRN ×2 (07:23→18:17)
[2017-02-04] MEDS ORDERED: CITRIC ACID/SODIUM CITRATE 30ml PO ONE (16:41)
[2017-02-04] MEDS ORDERED: CEFAZOLIN PREMIX (MC ONLY) 2 GM/50 ML BAG IV ONE (16:41)
[2017-02-04] MEDS ORDERED: FAMOTIDINE PB 20 MG/50 ML BAG IV ONE (16:41)
[2017-02-04] MEDS ORDERED: AZITHROMYCIN IV 500 MG in NS 250ml 250 ML IV ONE (16:43)
[2017-02-04] MEDS: NOZIN NASAL SWAB NAS SCH (17:02)
[2017-02-04] MEDS ORDERED: ONDANSETRON 4 MG/2 ML INJECTION ONE (17:40)
[2017-02-04] MEDS: OXYTOCIN DRIP 30 UNIT/500 ML ML IV SCH ×2 (17:50→18:11)
[2017-02-04] MEDS ORDERED: MORPHINE SULFATE PF 5mg/10ml INJ (Duramorph) ONE (17:58)
[2017-02-04] MEDS ORDERED: NALBUPHINE 10 MG/ML INJECTION IVP PRN (18:17)
[2017-02-04] MEDS ORDERED: NALOXONE 2 MG/2 ML INJECTION PFS IVP PRN (18:17)
[2017-02-04] MEDS ORDERED: METOCLOPRAMIDE 10mg/2ml INJECTION IVP PRN (18:17)
[2017-02-04] MEDS: D5LR 1,000 ML IV SCH (18:45)
[2017-02-04] MEDS ORDERED: DiphenhydrAMINE 25 MG CAPSULE PO PRN (20:09)
[2017-02-04] MEDS ORDERED: HYDROCORTISONE 2.5% CREAM 30gm RECTALLY PRN (20:09)
[2017-02-04] MEDS ORDERED: OXYTOCIN DRIP 30 UNIT/500 ML ML IV SCH (20:09)
[2017-02-04] MEDS ORDERED: SIMETHICONE 80 MG CHEWABLE TABLET PO PRN (20:09)
[2017-02-04] MEDS: IBUPROFEN 800 MG TABLET PO PRN (20:13)
[2017-02-04] MEDS: HYDROCODONE/APAP 5mg/325mg TABLET PO PRN (20:59)
[2017-02-04] MEDS: SIMETHICONE 80 MG CHEWABLE TABLET PO SCH (22:54)
[2017-02-04] MEDS: ONDANSETRON 4 MG/2 ML INJECTION IVP PRN (22:58)
[2017-02-05] MEDS: NOZIN NASAL SWAB NAS SCH ×3 (00:54→17:29)
[2017-02-05] MEDS: D5LR 1,000 ML IV SCH ×2 (00:57→17:33)
[2017-02-05] MEDS: ONDANSETRON 4 MG/2 ML INJECTION IVP PRN (03:24)
--- NOTE | 2017-02-05 07:55 | OB/GYN Progress Note ---
OB-PP Progress Note - General PPD1 Maternal Group B Strep: Negative Maternal blood type: A+ Maternal Rubella Status: Immune - Subjective Date: 02/05/17 Lochia: Minimal Pain: contolled Voiding: carlton still in place - Objective Vital Signs: Last Vital Signs Temp 98.0 F 02/05/17 03:30 Pulse 68 02/05/17 03:30 Resp 16 02/05/17 03:30 BP 137/79 02/05/17 03:30 Pulse Ox 96 02/05/17 03:30 Urine Output: good General: alert and oriented Abdomen: non-tender, soft, non-distended Incision: normal, intact, dressed Extremities: non-tender Laboratory: Laboratory Results - last 24 hr 02/04/17 02/04/17 10:13 23:15 WBC 17.2 H D RBC 3.48 L Hgb 9.8 L Hct 30.5 L MCV 87.6 MCH 28.2 MCHC 32.1 RDW Std Deviation 42.2 Plt Count 113 L MPV 13.6 H Urine Protein 30 Urine Collection Time 24 Urine Total Volume 1.875 Urine Creatinine 69.3 Ur Creatinine 24 Hour 1299 Ur Total Protein 24 Hr 562 H - Assessment Assessment: Primary C/S, Anemia, Preeclampsia Comments: Thrombocytopenia - Plan Plan: routine care, iron BPs are improving.
[2017-02-05] MEDS: IBUPROFEN 800 MG TABLET PO PRN ×2 (10:37→21:38)
--- NOTE | 2017-02-05 10:40 | Operative Note ---
DATE OF PROCEDURE 02/04/2017 PREOPERATIVE DIAGNOSES 1. 26-year-old 1 at 38 weeks 6 days gestational age. 2. Mild preeclampsia. 3. Arrest of descent. POSTOPERATIVE DIAGNOSES 1. 26-year-old 1 at 38 weeks 6 days gestational age. 2. Mild preeclampsia. 3. Arrest of descent. PROCEDURE Primary low transverse section. SURGEON Dr. Maryann Gross TRACK WELDER Dr. Nicola Marie ANESTHESIA Epidural by Eben Harley CRNA COMPLICATIONS None. EBL 700 mL FINDINGS Viable female infant, cephalic LOT position, clear fluids, Apgars 9/9, weight 3902 grams, name "Ivelisse." Normal-appearing uterus, tubes and ovaries. INDICATIONS The patient presented to my office on 02/03/2017 and was found to have elevated blood pressures with 2+ proteinuria. She was sent to the hospital for further evaluation where her blood pressures continued to be elevated, platelets were down to 130 and creatinine was up to 0.8. She was admitted and a Rosales bulb was placed for cervical ripening. This morning she was found to be 4 cm dilated and ruptured her membranes spontaneously, returning clear fluids. She was started on Pitocin. She received an epidural. She progressed to 5.5 and 0 station. When she did not change any farther, an IUPC was placed to titrate Pitocin. She never did progress past 5.5 cm and 0 station. The baby's caput was increasing and mom's temperature was increased to 99.1, so she was consented for a section. DESCRIPTION OF PROCEDURE The patient was taken to the operating room where her epidural was brought up to adequate surgical levels. She had a Rosales catheter in place. Her IUPC was removed. She was prepared and draped in the normal sterile fashion. A Pfannenstiel skin incision was made 2 cm above the symphysis pubis and carried down to the fascia. The fascia was incised in the midline and extended laterally with the Bond scissors. The fascia was elevated and the underlying rectus muscles were dissected off. The peritoneum was entered sharply and extended superiorly and inferiorly with good visualization of the bladder. The bladder blade was inserted. A bladder flap was created sharply and the bladder blade was reinserted. The lower uterine segment was incised in a transverse fashion layer by layer with a scalpel and bluntly extended. The 's head was wedged deeply in the pelvis. I was able to lift it a little bit. Dr. Marie helped me deliver the head the remainder of the way. The nose and mouth were suctioned. The cord was clamped and cut. The was handed to Dr. Morales who was asked to attend due to the unscheduled surgery and preeclampsia. The placenta was delivered. The uterus was exteriorized and cleared of all clots and debris. She was found to have an extension on the left edge of the incision. This was all closed with running locked 0 Monocryl. A couple [id number] of 2-0 chromic were placed on the left edge of the incision that was bleeding slightly. Good hemostasis was then noted. The uterus was returned to the abdomen. The gutters were cleared of all clots and debris. The uterine incision was inspected one final time and still noted to be hemostatic. The peritoneum was closed with running 2-0 Vicryl. Hemostasis was obtained in the rectus muscles with cautery. The fascia was closed with running 0 Vicryl. Hemostasis was obtained in the subcutaneous tissue with the cautery. Charlotte's fascia was reapproximated with three [id number] of 2-0 Vicryl. The skin was closed with 4-0 Vicryl in a subcuticular manner. Steri-Strips were placed. Sponge, sharp and instrument counts were correct. The patient tolerated procedure well and was taken to the recovery room in good condition. CAMI
[2017-02-05] MEDS: DOCUSATE CALCIUM 240 MG CAPSULE PO SCH (11:22)
[2017-02-05] MEDS: IRON POLYSACCHARIDE COMPLEX 150 MG CAPSULE PO SCH (11:24)
[2017-02-05] MEDS: HYDROCODONE/APAP 5mg/325mg TABLET PO PRN ×2 (17:30→21:38)
[2017-02-05] MEDS: SIMETHICONE 80 MG CHEWABLE TABLET PO SCH ×3 (17:30→21:37)
[2017-02-05] MEDS: OXYTOCIN DRIP 30 UNIT/500 ML ML IV SCH (21:38)
[2017-02-05 23:41] VITALS: RESP 18
[2017-02-06] MEDS: SIMETHICONE 80 MG CHEWABLE TABLET PO SCH (00:20)
[2017-02-06] MEDS: NOZIN NASAL SWAB NAS SCH (00:38)
[2017-02-06 03:02] VITALS: O2SAT 97
[2017-02-06] MEDS: IBUPROFEN 800 MG TABLET PO PRN (06:22)
[2017-02-06] MEDS: HYDROCODONE/APAP 5mg/325mg TABLET PO PRN (06:23)
[2017-02-06 06:37] VITALS: BP 148/84; PULSE 77; TEMP 97.9
--- NOTE | 2017-02-06 07:59 | OB/GYN Progress Note ---
OB-PP Progress Note - General PPD2 - Subjective Date: 02/06/17 Lochia: Minimal Pain: contolled Voiding: voiding - Objective Vital Signs: Last Vital Signs Temp 97.9 F 02/06/17 06:35 Pulse 77 02/06/17 06:35 Resp 18 02/06/17 06:35 BP 148/84 H 02/06/17 06:35 Pulse Ox 97 02/06/17 06:35 Urine Output: good General: alert and oriented Abdomen: fundus firm, non-tender, soft Incision: normal, dry, intact Extremities: non-tender - Assessment Assessment: Primary C/S, Preeclampsia - Plan Plan: routine care, iron, discharge home, continue PNV
[2017-02-06] MEDS: IRON POLYSACCHARIDE COMPLEX 150 MG CAPSULE PO SCH (10:29)
[2017-02-06] MEDS: DOCUSATE CALCIUM 240 MG CAPSULE PO SCH (10:29)
== END 2017-02-06 14:25 | disposition home or self-care (01) | DRG 765 ==
LOC: MC
PROVIDERS: ADMIT Obstetrics & Gynecology; ATTEND Obstetrics & Gynecology